=== PATIENT | female | born 1950 | race Caucasian/White ===

== ENCOUNTER 2016-12-04 17:26 | Inpatient (IN) | payer BC, MEDICARE, OTHER ==
[~2016-12-04] VITALS: Ht 160 cm; Wt 50.0 kg
[2016-12-04 17:28] VITALS: BP 148/81; PULSE 57; RESP 15; TEMP 98.2; O2SAT 98
--- NOTE | 2016-12-04 18:32 | PD ---
HPI Chief Complaint: Psychiatric Symptoms Time Seen by Provider: 18:24 Travel History International Travel<30 days: No Contact w/Intl Traveler<30days: No Traveled to known affect area: No History of Present Illness HPI 66 year old female presents to the emergency department with her niece for psychiatric evaluation. According to the niece, the patient was Hope Acted yesterday and was taken to [facility]. She was later released back home. According to the niece, the patient threatens her and threatens suicide. She states she moved down in July of 2016 to take care of the patient and her with dementia. She states the patient was off her meds and she is now back on them. The niece states that she saw her PCP and was placed on Buspar for "manic bipolar disorder" on Monday. She has not yet been to a psychiatrist. The patient denies any suicidal or homicidal ideation. She states she has been "angry" since her niece moved down. She states that her niece controls her too much and has sold some of her belongings. The niece states she did this with permission. She denies any alcohol use, tobacco use, drug use. She denies any medical complaints today. She has a PMH of HTN, DM, CVA. PFSH Social History Alcohol Use: No Tobacco Use: No Substance Use: No Allergies-Medications (Allergen,Severity, Reaction): Coded Allergies: Sulfa (Verified Allergy, Unknown, ITCHY , 12/04/16) Reported Meds & Prescriptions Reported Meds & Active Scripts Active Reported Buspirone (Buspirone HCl) 5 Mg Tab 5 Mg PO BID Novolog Flexpen Inj (Insulin Aspart) 300 Unit/3 Ml Pen 1 Units SQ QID PRN Amlodipine (Amlodipine Besylate) 5 Mg Tab 5 Mg PO DAILY Aspirin 81 Mg Chew 81 Mg CHEW DAILY Atorvastatin (Atorvastatin Calcium) 40 Mg Tab 40 Mg PO HS Lantus Inj (Insulin Glargine) 1,000 Unit/10 Ml Vial 5 Units SQ HS Hydralazine (Hydralazine HCl) 25 Mg Tab 25 Mg PO TID Take with a meal Ramipril 5 Mg Cap 5 Mg PO DAILY Clonidine (Clonidine HCl) 0.1 Mg Tab 0.1 Mg PO DAILY Review of Systems Except as stated in HPI: all other systems reviewed are Neg Physical Exam Narrative GENERAL: Well-nourished, well-developed female patient, ambulatory and in no acute distress. Afebrile. SKIN: Focused skin assessment warm/dry. HEAD: Normocephalic. Atraumatic. EYES: No scleral icterus. No injection or drainage. NECK: Supple, trachea midline. No JVD or lymphadenopathy. CARDIOVASCULAR: Regular rate and rhythm without murmurs, gallops, or rubs. RESPIRATORY: Breath sounds equal bilaterally. No accessory muscle use. Lung sounds are clear to auscultation. GASTROINTESTINAL: Abdomen soft, non-tender, nondistended. MUSCULOSKELETAL: No cyanosis, or edema. PSYCHIATRIC: No delusional thought processes. No hallucinations. Data Data Last Documented VS Vital Signs Date Time Temp Pulse Resp B/P Pulse Ox O2 Delivery O2 Flow Rate FiO2 12/04/16 19:30 62 14 140/76 99 12/04/16 17:28 98.2 Orders Complete Blood Count With Diff (12/04/16 18:23) Comprehensive Metabolic Panel (12/04/16 18:23) Urinalysis - C+S If Indicated (12/04/16 18:23) Psych Screen (12/04/16 18:23) Drug Screen, Random Urine (12/04/16 18:23) Alcohol (Ethanol) (12/04/16 18:23) Labs Laboratory Tests Test 12/04/16 12/04/16 18:45 18:50 White Blood Count 9.6 TH/MM3 Red Blood Count 3.87 MIL/MM3 Hemoglobin 11.4 GM/DL Hematocrit 34.2 % Mean Corpuscular Volume 88.2 FL Mean Corpuscular Hemoglobin 29.5 PG Mean Corpuscular Hemoglobin 33.4 % Concent Red Cell Distribution Width 14.1 % Platelet Count 206 TH/MM3 Mean Platelet Volume 9.5 FL Neutrophils (%) (Auto) 74.8 % Lymphocytes (%) (Auto) 14.0 % Monocytes (%) (Auto) 6.9 % Eosinophils (%) (Auto) 3.6 % Basophils (%) (Auto) 0.7 % Neutrophils # (Auto) 7.2 TH/MM3 Lymphocytes # (Auto) 1.4 TH/MM3 Monocytes # (Auto) 0.7 TH/MM3 Eosinophils # (Auto) 0.3 TH/MM3 Basophils # (Auto) 0.1 TH/MM3 CBC Comment DIFF FINAL Differential Comment Sodium Level 140 MEQ/L Potassium Level 4.0 MEQ/L Chloride Level 105 MEQ/L Carbon Dioxide Level 28.8 MEQ/L Anion Gap 6 MEQ/L Blood Urea Nitrogen 21 MG/DL Creatinine 1.25 MG/DL Estimat Glomerular Filtration 43 ML/MIN Rate Random Glucose 142 MG/DL Calcium Level 9.2 MG/DL Total Bilirubin 0.5 MG/DL Aspartate Amino Transf 23 U/L (AST/SGOT) Alanine Aminotransferase 41 U/L (ALT/SGPT) Alkaline Phosphatase 67 U/L Total Protein 7.7 GM/DL Albumin 3.8 GM/DL Ethyl Alcohol Level 5 MG/DL Urine Color YELLOW Urine Turbidity CLEAR Urine pH 5.5 Urine Specific [place] 1.017 Urine Protein 30 mg/dL Urine Glucose (UA) NEG mg/dL Urine Ketones NEG mg/dL Urine Occult Blood NEG Urine Nitrite NEG Urine Bilirubin NEG Urine Urobilinogen LESS THAN 2.0 MG/DL Urine Leukocyte Esterase NEG Urine RBC LESS THAN 1 /hpf Urine WBC 4 /hpf Urine Bacteria RARE /hpf Urine Hyaline Casts 4 /lpf Urine Mucus FEW /lpf Microscopic Urinalysis Comment CULT NOT INDICATED Urine Opiates Screen NEG Urine Barbiturates Screen NEG Urine Amphetamines Screen NEG Urine Benzodiazepines Screen NEG Urine Cocaine Screen NEG Urine Cannabinoids Screen NEG MDM Medical Decision Making Medical Screen Exam Complete: Yes Emergency Medical Condition: Yes Medical Record Reviewed: Yes Differential Diagnosis Depression versus anxiety versus bipolar disorder versus electrolyte abnormality versus UTI Narrative Course 66-year-old female presents to the emergency department with her niece for psychiatric evaluation. Patient niece states that the patient her entire and threatened suicide. However, the patient denies this stating that she is just angry and doesn't want her niece living with her anymore. She states that her niece controls her too much. She denies any suicidal or homicidal ideation. CBC, CMP, alcohol level, UA, UDS are ordered and pending. CBC shows no acute abnormality. CMP shows BUN 21, creatinine 1.25. Alcohol level is 5. UDS is negative. UA is negative for acute infection. Patient is medically cleared for psychiatric screening and disposition. Mental health screening discussed with the patient. Psychiatric screen ordered. Diagnosis Primary Impression: Anger Additional Instructions: Patient is medically cleared for psychiatric screening and disposition. Condition: Stable Vincent Islasmj WINTER Dec 04, 2016 18:32
[2016-12-04 19:01] LABS: AUTOMATED NEUTROPHIL # 7.2 TH/MM3 (1.8-7.7); BASOPHIL # 0.1 TH/MM3 (0-0.2); BASOPHIL % 0.7 % (0.0-2.0); EOSINOPHIL # 0.3 TH/MM3 (0-0.4); EOSINOPHIL % 3.6 % (0.0-4.0); HEMATOCRIT 34.2 % (35.0-46.0); HEMO FLAGS DIFF FINAL; LYMPHOCYTE # 1.4 TH/MM3 (1.0-4.8); MEAN CELL VOLUME 88.2 FL (80.0-100.0); MEAN CORPUSCULAR HEMOGLOBIN 29.5 PG (27.0-34.0); MEAN CORPUSCULAR HGB CONC 33.4 % (32.0-36.0); MONO % 6.9 % (0.0-8.0); NEUT % 74.8 % (16.0-70.0); PLATELET COUNT 206 TH/MM3 (150-450); RED BLOOD COUNT 3.87 MIL/MM3 (4.00-5.30); RED CELL DISTRIBUTION WIDTH 14.1 % (11.6-17.2); WHITE BLOOD COUNT 9.6 TH/MM3 (4.0-11.0)
[2016-12-04 19:18] LABS: ANION GAP 6 MEQ/L (5-15)
[2016-12-04] MEDS ORDERED: RAMI5CAP PO (19:18)
[2016-12-04] MEDS ORDERED: CLON0.1T PO (19:18)
[2016-12-04 19:21] LABS: ALKALINE PHOSPHATASE 67 U/L (45-117); ALT (GPT) 41 U/L (10-53); AST (GOT) 23 U/L (15-37); BICARBONATE 28.8 MEQ/L (21.0-32.0); BLOOD UREA NITROGEN 21 MG/DL (7-18); CHLORIDE 105 MEQ/L (98-107); GLOMERULAR FILTRATION RATE 43 ML/MIN (>89); SODIUM (NA) 140 MEQ/L (136-145); TOTAL BILIRUBIN ADULT 0.5 MG/DL (0.2-1.0)
[2016-12-04] MEDS ORDERED: LANTUS2P SQ (19:24)
[2016-12-04] MEDS ORDERED: HYDR25TA35 PO (19:24)
[2016-12-04] MEDS ORDERED: AMLO5TAB2 PO (19:24)
[2016-12-04] MEDS ORDERED: ATOR40TA16 PO (19:24)
[2016-12-04] MEDS ORDERED: NOVOINJ3 SQ (19:24)
[2016-12-04] MEDS ORDERED: ASPI81CH CHEW (19:24)
[2016-12-04] MEDS ORDERED: BUSP5TAB PO (19:28)
[2016-12-04 19:29] LABS: BACTERIA, URINE RARE /hpf; BLOOD, URINE NEG (NEG); COMMENT (UR) CULT NOT INDICATED; CULTURE IF INDICATED CULT NOT INDICATED; GLUCOSE,URINE NEG (NEG); HYALINE CAST, URINE 4 /lpf (RARE); KETONE, URINE NEG (NEG); MUCUS URINE FEW /lpf (OCC); NITRITE,URINE NEG (NEG); PH, URINE 5.5 (5.0-8.5); URINE COLOR YELLOW (YELLW/STRAW)
[2016-12-04 19:30] VITALS: BP 140/76; PULSE 62; RESP 14; O2SAT 99
[2016-12-04 19:39] LABS: AMPHETAMINE, URINE NEG (NEG); BARBITURATES, URINE NEG (NEG); COCAINE, URINE NEG (NEG)
[2016-12-04 22:09] VITALS: BP 136/74; PULSE 66; RESP 14; O2SAT 97
[2016-12-04 22:30] VITALS: BP 162/78; PULSE 70; RESP 16; TEMP 98; O2SAT 98
[2016-12-04] MEDS ORDERED: MAGNESIUM HYDROXIDE SUSP 30 ML CUP PO PRN (23:30)
[2016-12-04] MEDS ORDERED: ACETAMINOPHEN 325 MG TAB PO PRN (23:30)
[2016-12-04] MEDS ORDERED: DEXTROSE 50% IN WATER 50 ML VIAL(D50) IV PUSH PRN (23:30)
[2016-12-04] MEDS ORDERED: LORazepam 0.5 MG TAB age > 65 yrs PO PRN (23:30)
[2016-12-04] MEDS ORDERED: GLUCAGON 1 MG/ML VIAL OTHER PRN (23:30)
[2016-12-04] MEDS ORDERED: ALUMINUM/MAGNESIUM/SIMETH 30 ML CUP PO PRN (23:30)
[2016-12-04] MEDS ORDERED: LORazepam 2 MG/ML VIAL - age > 65 yrs IM PRN (23:30)
[2016-12-04] MEDS ORDERED: QUEtiapine FUMARATE 25 MG TAB PO SCH (23:30)
[2016-12-05 06:46] VITALS: BP 158/77; PULSE 71; RESP 18; TEMP 97.9; O2SAT 97
[2016-12-05] MEDS: LOW DOSE INSULIN NOVOLOG SUPPLEMENTAL SCALE SQ SCH ×4 (07:00→21:00)
[2016-12-05 07:21] LABS: ANION GAP 8 MEQ/L (5-15); BICARBONATE 27.1 MEQ/L (21.0-32.0); BLOOD UREA NITROGEN 19 MG/DL (7-18); CHLORIDE 107 MEQ/L (98-107); POTASSIUM 3.8 MEQ/L (3.5-5.1); SODIUM (NA) 142 MEQ/L (136-145); URIC ACID 4.4 MG/DL (2.6-6.0)
[2016-12-05 07:48] LABS: FREE T4 1.19 NG/DL (0.76-1.46); GLOMERULAR FILTRATION RATE 51 ML/MIN (>89); LDL CHOLESTEROL 20 MG/DL (0-99)
[2016-12-05 07:53] LABS: CREATINE KINASE 78 U/L (26-192)
[2016-12-05] MEDS: RAMIPRIL 5 MG CAP PO SCH (09:00)
[2016-12-05] MEDS: cloNIDine HCL 0.1 MG TAB PO SCH (09:01)
[2016-12-05] MEDS: amLODIPine BESYLATE 5 MG TAB PO SCH (09:01)
[2016-12-05] MEDS: ASPIRIN 81 MG CHEW TAB PO SCH (09:01)
[2016-12-05] MEDS: hydrALAZINE HCL 25 MG TAB PO SCH ×3 (09:01→18:08)
[2016-12-05 13:00] VITALS: BP 123/60; PULSE 64; RESP 17; TEMP 98.1
--- NOTE | 2016-12-05 14:38 | HHI.HP ---
Provisional Diagnosis Admission Date Dec 04, 2016 at 21:37 [place] I. Adjustment disorder with mixed disturbance of emotion and conduct. Certification of Person's Competence To Provide Express and Informed Consent I have personally examined Julee Kaufman , a person being served at [facility] on, Dec 05, 2016 14:32. Express and informed consent means consent voluntarily given in writing, by a competent person, after sufficient explanation and disclosure of the subject matter involved to enable the person to make a knowing and willful decision without any element of force, fraud, deceit, duress, or other form of constraint or coercion. This person is 18 years of age or older, is not now known to be incompetent to consent to treatment with a guardian advocate, and does not have a health care surrogate or proxy currently making medical treatment decisions. I have found this person to be one of the following: [X] Competent to provide express and informed consent, as defined above, for voluntary admission to this facility and is competent to provide express and informed consent for treatment. He/she has the consistent capacity to make well reasoned, willful, and knowing decisions concerning his or her medical or mental health treatment. The person fully and consistently understands the purpose of the admission for examination/placement and is fully capable of personally exercising all rights assured [place] [] Incompetent to provide express and informed consent to voluntary admission, and this is incompetent to provide express and informed consent to treatment. The person must be transferred to involuntary status and a petition for a guardian advocate filed with the Circuit Court. [] Refusing to provide express and informed consent to voluntary admission but is competent to provide express and informed consent for treatment. The person must be discharged or transferred to involuntary status. Form shall be completed within 24 hours of a person's arrival at the receiving facility and filed in the clinical record of each person: 1. Admitted on a voluntary basis 2. Permitted to provide express and informed consent to his/her own treatment 3. Allowed to transfer from involuntary to voluntary status 4. Prior to permitting a person to consent to his or her own treatment after having been previously found incompetent to consent to treatment. History of Present Illness Capacity: Has Capacity HPI This is a 66-year-old female who was reportedly Hope acted by her daughter for suicidal remarks. The patient denies having been suicidal. She does state that she said this threat yesterday, on the day of admission. She reports being bothered by her niece, who has moved down here from [place] with HER-2 children and a male friend, to move in with the patient and her . Patient states that these people are aggravating to her and she wants her needs to leave. She reports that the kids who are 11 and 7 are very stressful for her as well and that the niece's friend has no business living in their home but her allowed it. The patient and her have been on the phone multiple times today and argue about everything. The patient however continues to not be suicidal or homicidal or psychotic. She would like to leave the hospital as soon as possible. She has a home with her in [facility]. Alcohol and drug toxicology screens are normal. Review of Systems ROS Limitations: Clinical Condition Past Psych History Psychological trauma history Denied Violence risk - others (6 mos) Minimal Violence risk - self (6 mos) Minimal Substance Abuse History Drugs/Alcohol past 12 months Denied Past Family Social History Coded Allergies: Sulfa (Verified Allergy, Unknown, ITCHY , 12/04/16) Reported Medications Buspirone 5 Mg Tab5 Mg PO BID Ref 0 12/04/16 Insulin Aspart Inj (Novolog Flexpen Inj)300 Unit/3 Ml Pen1 Units SQ QID PRN ( SLIDING SCALE ) #1 PEN Ref 0 12/04/16 Amlodipine 5 Mg Tab5 Mg PO DAILY #30 TAB Ref 0 12/04/16 Aspirin 81 Mg Chew81 Mg CHEW DAILY Ref 0 12/04/16 Atorvastatin 40 Mg Tab40 Mg PO HS #30 TAB Ref 0 12/04/16 Insulin Glargine Inj (Lantus Inj)1,000 Unit/10 Ml Vial5 Units SQ HS Ref 0 12/04/16 Hydralazine 25 Mg Tab25 Mg PO TID #90 TAB Ref 0 Take with a meal 12/04/16 Ramipril 5 Mg Cap5 Mg PO DAILY #30 CAP Ref 0 12/04/16 Clonidine 0.1 Mg Tab0.1 Mg PO DAILY #60 TAB Ref 0 12/04/16 Current Medications Medications (Trade) Dose Ordered Sig/Clif Route Start Time Stop Time Status Last Admin (Catapres) 0.1 mg DAILY PO 12/05/16 09:00 12/05/16 09:01 (Altace) 5 mg DAILY PO 12/05/16 09:00 12/05/16 09:00 (Apresoline) 25 mg TID PO 12/05/16 09:00 12/05/16 13:36 (Levemir Inj) 5 units HS SQ 12/05/16 21:00 (Aspirin Chew) 81 mg DAILY PO 12/05/16 09:00 12/05/16 09:01 (Norvasc) 5 mg DAILY PO 12/05/16 09:00 12/05/16 09:01 (Lipitor) 40 mg HS PO 12/05/16 21:00 (SEROquel) 25 mg HS PO 12/05/16 21:00 (D50w (Vial) Inj) 25 ml UNSCH PRN IV PUSH 12/04/16 23:30 (Glucagon Inj) 1 mg UNSCH PRN OTHER 12/04/16 23:30 (Ativan) 0.5 mg Q12H PRN PO 12/04/16 23:30 (Ativan Inj) 0.5 mg Q12H PRN IM 12/04/16 23:30 (Tylenol) 650 mg Q4H PRN PO 12/04/16 23:30 (Milk Of Magnesia Liq) 30 ml DAILY PRN PO 12/04/16 23:30 (Mag-Al Plus Susp Liq) 30 ml Q6H PRN PO 12/04/16 23:30 Family History Positive for mood and anxiety disorders. Social History Patient has been for greater than 25 years. reportedly has some early onset dementia. Patient denies alcohol or drug abuse at this time. However she is not employed. Patient's Strengths (min. 2) Verbal and resilient. Physical Exam GENERAL: SKIN: Warm and dry. HEAD: Normocephalic. EYES: No scleral icterus. No injection or drainage. NECK: Supple, trachea midline. No JVD or lymphadenopathy. CARDIOVASCULAR: Regular rate and rhythm without murmurs, gallops, or rubs. RESPIRATORY: Breath sounds equal bilaterally. No accessory muscle use. GASTROINTESTINAL: Abdomen soft, non-tender, nondistended. MUSCULOSKELETAL: No cyanosis, or edema. BACK: Nontender without obvious deformity. No CVA tenderness. Vital Signs Vital Signs Date Time Temp Pulse Resp B/P Pulse Ox O2 Delivery O2 Flow Rate FiO2 4/17/17 06:46 97.9 71 18 158/77 97 Mental Status Examination Speech: Unremarkable Orientation: x3 Memory: Unremarkable Thought Process: Organized, Goal Directed Thought Content: Unremarkable Hallucination Type: None Attention and Concentration: Good Suicidal Ideation: No Previous Suicide Attempts: No Homicidal Ideation: No Previous Homicide Attempts: No Insight: Fair Judgment: WNL Affect: Good Mood: Appropriate Motor Activity: Normal gait Assessment & Plan Problem List: (1) Adjustment disorder with mixed disturbance of emotions and conduct ICD Code: F43.25 Assessment & Plan Estimated LOS: 1-2 days patient will be evaluated for mood disorder and the possible need for antidepressant therapy. However she would like to leave the hospital and may possibly be discharged tomorrow to her . Jasbir Weathers MD Dec 05, 2016 14:38
[2016-12-05 16:37] LABS: HEMOGLOBIN A1a 0.7 %; HEMOGLOBIN A1b 0.8 %; HEMOGLOBIN Ao 84.7 %; HEMOGLOBIN F 0.7 %; HEMOGLOBIN LA1C 1.9 %
--- NOTE | 2016-12-05 16:51 | PD.CONS ---
[facility] By [facility]ry team Reason for Consult Assessment medical management Primary Care Physician Reta Washington M.D. Diagnoses: History of Present Illness Patient is a 66 year old female with primary medical history of HTN, DM, CVA who came into the hospital under Hope act secondary to threatening her niece and threatening for suicide. As per report, patient has been off of her psych medications but has been placed back by her PCP recently on BuSpar for manic bipolar disorder. She is now admitted to inpatient psychiatry unit for further evaluation. Consulted for assistance in medical management. Patient seen and examined. Reports she is doing well. Confirmed that she has a history of hypertension, DM, had CVA in 2016 without any residual deficits. Denies pain and discomfort. Denies SOB/ dyspnea. Denies chest pain, palpitations, headaches, dizziness. Denies fevers, chills, n/v/d. Review of Systems Except as stated in HPI: all other systems reviewed are Neg Past Family Social History Allergies: Coded Allergies: Sulfa (Verified Allergy, Unknown, ITCHY , 12/04/16) Past Medical History HTN DM 2 CVA in 2016 without any residual weakness Past Surgical History None Reported Medications Buspirone (Buspirone HCl) 5 Mg Tab 5 Mg PO BID Novolog Flexpen Inj (Insulin Aspart) 300 Unit/3 Ml Pen 1 Units SQ QID PRN Amlodipine (Amlodipine Besylate) 5 Mg Tab 5 Mg PO DAILY Aspirin 81 Mg Chew 81 Mg CHEW DAILY Atorvastatin (Atorvastatin Calcium) 40 Mg Tab 40 Mg PO HS Lantus Inj (Insulin Glargine) 1,000 Unit/10 Ml Vial 5 Units SQ HS Hydralazine (Hydralazine HCl) 25 Mg Tab 25 Mg PO TID Take with a meal Ramipril 5 Mg Cap 5 Mg PO DAILY Clonidine (Clonidine HCl) 0.1 Mg Tab 0.1 Mg PO DAILY Active Ordered Medications Current Medications Medications (Trade) Dose Ordered Sig/Clif Route Start Time Stop Time Status Last Admin (Catapres) 0.1 mg DAILY PO 12/05/16 09:00 12/05/16 09:01 (Altace) 5 mg DAILY PO 12/05/16 09:00 12/05/16 09:00 (Apresoline) 25 mg TID PO 12/05/16 09:00 12/05/16 13:36 (Levemir Inj) 5 units HS SQ 12/05/16 21:00 (Aspirin Chew) 81 mg DAILY PO 12/05/16 09:00 12/05/16 09:01 (Norvasc) 5 mg DAILY PO 12/05/16 09:00 12/05/16 09:01 (Lipitor) 40 mg HS PO 12/05/16 21:00 (SEROquel) 25 mg HS PO 12/05/16 21:00 (D50w (Vial) Inj) 25 ml UNSCH PRN IV PUSH 12/04/16 23:30 (Glucagon Inj) 1 mg UNSCH PRN OTHER 12/04/16 23:30 (Ativan) 0.5 mg Q12H PRN PO 12/04/16 23:30 (Ativan Inj) 0.5 mg Q12H PRN IM 12/04/16 23:30 (Tylenol) 650 mg Q4H PRN PO 12/04/16 23:30 (Milk Of Magnesia Liq) 30 ml DAILY PRN PO 12/04/16 23:30 (Mag-Al Plus Susp Liq) 30 ml Q6H PRN PO 12/04/16 23:30 Family History Mother and father had cerebral hemorrhage Social History Denies alcohol use denies tobacco use Denies illicit drug use Physical Exam Vital Signs Vital Signs Date Time Temp Pulse Resp B/P Pulse Ox O2 Delivery O2 Flow Rate FiO2 12/05/16 13:00 98.1 64 17 123/60 12/05/16 06:46 97.9 71 18 158/77 97 12/04/16 22:30 98.0 70 16 162/78 98 12/04/16 22:09 66 14 136/74 97 12/04/16 19:30 62 14 140/76 99 12/04/16 17:41 16 12/04/16 17:28 98.2 57 15 148/81 98 Physical Exam GENERAL: This is a thin-appearing, well-developed patient, in no apparent distress. SKIN: No rashes, ecchymoses or lesions. Cool and dry. HEAD: Atraumatic. Normocephalic. No temporal or scalp tenderness. EYES: Pupils equal round and reactive. Extraocular motions intact. No scleral icterus. No injection or drainage. ENT: Nose without bleeding. Throat without erythema. Uvula midline. Airway patent. NECK: Trachea midline. No JVD or lymphadenopathy. CARDIOVASCULAR: Regular rate and rhythm without murmurs, gallops, or rubs. RESPIRATORY: Clear to auscultation. Breath sounds equal bilaterally. No wheezes , rales, or rhonchi. GASTROINTESTINAL: Abdomen soft, non-tender, nondistended. Bowel sounds active 4 MUSCULOSKELETAL: Extremities without clubbing, cyanosis, or edema. Moves all extremities equally. NEUROLOGICAL: Awake and alert. Oriented to self, place, time. Motor and sensory grossly within normal limits. Normal speech. Laboratory Laboratory Tests Test 12/04/16 12/04/16 12/05/16 18:45 18:50 06:40 White Blood Count 9.6 Red Blood Count 3.87 Hemoglobin 11.4 Hematocrit 34.2 Mean Corpuscular Volume 88.2 Mean Corpuscular Hemoglobin 29.5 Mean Corpuscular Hemoglobin 33.4 Concent Red Cell Distribution Width 14.1 Platelet Count 206 Mean Platelet Volume 9.5 Neutrophils (%) (Auto) 74.8 Lymphocytes (%) (Auto) 14.0 Monocytes (%) (Auto) 6.9 Eosinophils (%) (Auto) 3.6 Basophils (%) (Auto) 0.7 Neutrophils # (Auto) 7.2 Lymphocytes # (Auto) 1.4 Monocytes # (Auto) 0.7 Eosinophils # (Auto) 0.3 Basophils # (Auto) 0.1 CBC Comment DIFF FINAL Differential Comment Sodium Level 140 142 Potassium Level 4.0 3.8 Chloride Level 105 107 Carbon Dioxide Level 28.8 27.1 Anion Gap 6 8 Blood Urea Nitrogen 21 19 Creatinine 1.25 1.08 Estimat Glomerular Filtration 43 51 Rate Random Glucose 142 100 Calcium Level 9.2 8.7 Total Bilirubin 0.5 Aspartate Amino Transf 23 (AST/SGOT) Alanine Aminotransferase 41 (ALT/SGPT) Alkaline Phosphatase 67 Total Protein 7.7 Albumin 3.8 Ethyl Alcohol Level 5 Urine Color YELLOW Urine Turbidity CLEAR Urine pH 5.5 Urine Specific [place] 1.017 Urine Protein 30 Urine Glucose (UA) NEG Urine Ketones NEG Urine Occult Blood NEG Urine Nitrite NEG Urine Bilirubin NEG Urine Urobilinogen LESS THAN 2.0 Urine Leukocyte Esterase NEG Urine RBC LESS THAN 1 Urine WBC 4 Urine Bacteria RARE Urine Hyaline Casts 4 Urine Mucus FEW Microscopic Urinalysis Comment CULT NOT INDICATED Urine Opiates Screen NEG Urine Barbiturates Screen NEG Urine Amphetamines Screen NEG Urine Benzodiazepines Screen NEG Urine Cocaine Screen NEG Urine Cannabinoids Screen NEG Uric Acid 4.4 Phosphorus Level 3.2 Magnesium Level 2.0 Total Creatine Kinase 78 Triglycerides Level 87 Cholesterol Level 76 LDL Cholesterol 20 HDL Cholesterol 39.0 Cholesterol/HDL Ratio 1.94 Vitamin B12 Level 588 25-Hydroxy Vitamin D Total 31.5 Free Thyroxine 1.19 Thyroid Stimulating Hormone 1.090 3rd Gen Rapid Plasma Reagin NON-REACTIVE Result Diagram: 12/04/16 1845 12/05/16 0640 Assessment and Plan Problem List: (1) Adjustment disorder with mixed disturbance of emotions and conduct ICD Code: F43.25 Status: Acute (2) HTN (hypertension) ICD Code: I10 Status: Chronic (3) DM type 2 (diabetes mellitus, type 2) ICD Code: E11.9 Status: Chronic Assessment and Plan Patient is a 66 year old female with primary medical history of HTN, DM, CVA who came into the hospital under Hope act secondary to threatening her niece and threatening for suicide. As per report, patient has been off of her psych medications but has been placed back by her PCP recently on BuSpar for manic bipolar disorder. She is now admitted to inpatient psychiatry unit for further evaluation. Consulted for assistance in medical management. Suicidal ideation, depression, bipolar disorder? - Managed by psychiatry team HTN - Restart home meds amlodipine 5 mg daily, ramipril 5 mg daily, hydralazine 25 mg 3 times a day - Adjust medication as needed - Monitor BP DM 2 - Check hemoglobin A1c - Restart home medication 5 units Levemir daily at bedtime, insulin sliding scale - Monitor Accu-Cheks History of CVA - Continue ASA daily - Continue atorvastatin 40 mg daily DVT prop low-risk patient ambulatory Thank you for this consultation. Written by Dylon Miranda, acting as scribe for Dr. Matos on 12/05/16 at 16: 50. This note was transcribed by scribe Dylon Miranda. I, Dr. Rodolfo Matos personally performed the history, physical exam, and medical decision making; and confirmed the accuracy of the information in the transcribed note. Authenticated by Dr. Rodolfo Matos on 12/05/16 at 16:50. Code Status Full code Discussed Condition With Patient, nursing Dylon Ospina Dec 05, 2016 16:51 Rodolfo Matos MD Dec 06, 2016 17:15
[2016-12-05 20:08] VITALS: BP 109/54; PULSE 67; RESP 18; TEMP 98.5; O2SAT 98
[2016-12-05] MEDS ORDERED: QUEtiapine FUMARATE 25 MG TAB PO SCH (21:00)
[2016-12-05] MEDS ORDERED: ATORVASTATIN 40 MG TAB PO SCH (21:00)
[2016-12-05] MEDS ORDERED: INSULIN DETEMIR 100 UNITS/ML VIAL SQ SCH (21:00)
[2016-12-06 06:33] VITALS: BP 108/67; PULSE 69; RESP 18; TEMP 97.9; O2SAT 97
[2016-12-06] MEDS: LOW DOSE INSULIN NOVOLOG SUPPLEMENTAL SCALE SQ SCH ×2 (06:35→11:00)
[2016-12-06] MEDS: RAMIPRIL 5 MG CAP PO SCH (08:27)
[2016-12-06] MEDS: amLODIPine BESYLATE 5 MG TAB PO SCH (08:28)
[2016-12-06] MEDS: cloNIDine HCL 0.1 MG TAB PO SCH (08:28)
[2016-12-06] MEDS: hydrALAZINE HCL 25 MG TAB PO SCH ×2 (08:28→13:40)
[2016-12-06] MEDS: ASPIRIN 81 MG CHEW TAB PO SCH (08:28)
--- NOTE | 2016-12-06 10:46 | HHI.DS ---
Psychiatry Discharge Summary Inpatient Psychiatric care?: Yes Advance Directive: Yes Mental Health AdvanceDirective: No Health Care Proxy: No Admission Admission Date Dec 04, 2016 at 21:37 Admission Diagnosis: (1) Adjustment disorder with mixed disturbance of emotions and conduct ICD Code: F43.25 Brief History This is a 66-year-old female who was reportedly Hope acted by her daughter for suicidal remarks. The patient denies having been suicidal. She does state that she said this threat yesterday, on the day of admission. She reports being bothered by her niece, who has moved down here from [place] with HER-2 children and a male friend, to move in with the patient and her . Patient states that these people are aggravating to her and she wants her needs to leave. She reports that the kids who are 11 and 7 are very stressful for her as well and that the niece's friend has no business living in their home but her allowed it. The patient and her have been on the phone multiple times today and argue about everything. The patient however continues to not be suicidal or homicidal or psychotic. She would like to leave the hospital as soon as possible. She has a home with her in [facility]. Alcohol and drug toxicology screens are normal. Tobacco Use In Past 30 Days: No Tobacco Past 30 Days Alcohol Use: Never Hospital Course Patient participated in individual and group therapy sessions. She was offered antidepressant medication as well. Her problems appear to be more situational because of her knees. However she states that her niece has left her home and the niece and the niece's friend and the niece's children are no longer there. No procedures were performed. The patient wants to go home to her . Results Blood Pressure 108 / 67 Vital Signs Date Time Temp Pulse Resp B/P Pulse Ox O2 Delivery O2 Flow Rate FiO2 12/06/16 06:33 97.9 69 18 108/67 97 Laboratory Tests Test 12/04/16 12/04/16 12/05/16 18:45 18:50 06:40 Red Blood Count 3.87 MIL/MM3 (4.00-5.30) Hemoglobin 11.4 GM/DL (11.6-15.3) Hematocrit 34.2 % (35.0-46.0) Neutrophils (%) (Auto) 74.8 % (16.0-70.0) Blood Urea Nitrogen 21 MG/DL (7-18) 19 MG/DL (7-18) Creatinine 1.25 MG/DL 1.08 MG/DL (0.50-1.00) (0.50-1.00) Estimat Glomerular Filtration 43 ML/MIN (>89) 51 ML/MIN (>89) Rate Random Glucose 142 MG/DL (74-106) Urine Protein 30 mg/dL (NEG-TRACE) Urine Bacteria RARE /hpf (NONE) Urine Mucus FEW /lpf (OCC) Hemoglobin A1c 6.2 % (4.3-6.0) Cholesterol Level 76 MG/DL (120-200) HDL Cholesterol 39.0 MG/DL (40.0-60.0) Laboratory Results Test 12/05/16 06:40 Hemoglobin A1c 6.2 % (4.3-6.0) Triglycerides Level 87 MG/DL (42-150) Cholesterol Level 76 MG/DL (120-200) LDL Cholesterol 20 MG/DL (0-99) HDL Cholesterol 39.0 MG/DL (40.0-60.0) Summary of Procedures None Pending results at discharge: No Medications # of Antipsychotic meds at D/C: 0 Approp Antipsych med options 1 - Minimum of three failed multiple trials of monotherapy. 2 - Documented plan to taper to monotherapy due to previous use of multiple meds OR cross-taper in progress at D/C. 3 - Documentation of augmentation of Clozapine. 4 - Justification other than those listed in allowable values 1-3, document here : Discharge Discharge Date: Dec 06, 2016 Discharge Diagnosis: (1) Adjustment disorder with mixed disturbance of emotions and conduct Diagnosis: Principal ICD Code: F43.25 Mental Status Exam at Disch At the time of discharge the patient was pleasant and cooperative. No suicidal or homicidal ideation, plan or intention was seen. No psychotic thinking. Patient verbally contracted for safety. Cognition completely intact. Pt Condition on Discharge: Stable Discharge Disposition: Discharge Home Discharge Instructions Diet Instructions: As Tolerated, No Restrictions Activities you can perform: Regular-No Restrictions Discharge Time <= 30 minutes Discharge/Advance Care Plan Health Problems: (1) Adjustment disorder with mixed disturbance of emotions and conduct Goals to promote your health * To prevent worsening of your condition and complications * To maintain your health at the optimal level Directions to meet your goals Take your medications as prescribed Follow your dietary instruction Follow activity as directed Keep your appointments as scheduled Take your immunizations and boosters as scheduled If your symptoms worsen call your PCP, if no PCP go to Urgent Care Center or Emergency Room For 13/03 questions related to your inpatient stay or results of tests pending at discharge, please contact Dr. Jasbir Weathers at Smoking is Dangerous to Your Health. Avoid second hand smoking Jasbir Weathers MD Dec 06, 2016 10:46
[2016-12-06] MEDS ORDERED: RAMI5CAP PO (10:49)
[2016-12-06] MEDS ORDERED: QUET1TAB7 PO (10:49)
[2016-12-06] MEDS ORDERED: AMLO5 PO (10:49)
[2016-12-06] MEDS ORDERED: HYDR25TA35 PO (10:49)
[2016-12-06] MEDS ORDERED: CLON.1 PO (10:49)
[2016-12-06] MEDS ORDERED: ATOR40TA16 PO (10:49)
== END 2016-12-06 15:30 | disposition home or self-care (01) | DRG 882 ==
LOC: NEPC 17:26 → NEDA 21:37 → H260 22:29
PROVIDERS: ADMIT Psychiatry & Neurology Psychiatry; ATTEND Psychiatry & Neurology Psychiatry
DX: F43.25 Adjustment disorder with mixed disturbance of emotions and conduct (principal); I10 Essential (primary) hypertension; F31.9 Bipolar disorder, unspecified; E11.9 Type 2 diabetes mellitus without complications; Z79.899 Other long term (current) drug therapy; Y90.0 Blood alcohol level of less than 20 mg/100 ml; Z86.73 Personal history of transient ischemic attack (TIA), and cerebral infarction without residual deficits
CPT/HCPCS: 80048; 80053; 80061; 80307; 81001; 82306; 82550; 82607; 82948; 83036; 83735; 84100; 84439; 84443; 84550; 85025; 86592; 99284; J1815

== ENCOUNTER 2017-10-02 20:35 | Inpatient (IN) | payer MEDICARE ==
[~2017-10-02] VITALS: Ht 160 cm; Wt 60.0 kg
[~2017-10-02 20:35] MED LIST: AMLO5 PO; AMLO5TAB2 PO; ASPI-516 CHEW; ATOR40TA16 PO; BUSP5TAB PO; CLON.1 PO; CLON0.1T PO; HYDR25TA35 PO; LANTUS2P SQ; NOVOINJ3 SQ; QUET1TAB7 PO; RAMI5CAP PO
[2017-10-02 20:50] VITALS: BP 173/92; PULSE 101; RESP 16; O2SAT 95
[2017-10-02] MEDS ORDERED: HYDR-3801 PO (21:04)
[2017-10-02] MEDS ORDERED: LORA-474 PO (21:04)
[2017-10-02] MEDS ORDERED: CLON0.1T PO (21:04)
--- NOTE | 2017-10-02 21:24 | PD ---
HPI Chief Complaint: Hip Injury Time Seen by Provider: 21:13 Travel History International Travel<30 days: No Contact w/Intl Traveler<30days: No Traveled to known affect area: No History of Present Illness HPI 67-year-old female presents emergency department complaining of left hip pain after a trip and fall that occurred at her assisted living facility today. Patient states that she had her foot wrapped in the cord actually fell landing on her left hip. Patient denies numbness or tingling or weakness of the left lower extremity. Patient denies pain currently. Patient denies head trauma, loss of consciousness. Denies neck or back pain. Denies blurred vision or weakness. Says that she was placed in the assisted living facility because she "made the mistake of giving her niece power of transactional attorney". She has a history of diabetes but denies any other medical problems. Denies history of anxiety or depression. PFSH Past Medical History Bipolar Disorder: Yes Anxiety: Yes Depression: Yes (MANIC ) Cerebrovascular Accident: Yes Diabetes: Yes Patient Takes Glucophage: No Diminished Hearing: No Hypertension: Yes Psychiatric: Yes Schizophrenia: Yes Menopausal: Yes Social History Alcohol Use: No Tobacco Use: No Substance Use: No Allergies-Medications (Allergen,Severity, Reaction): Coded Allergies: Sulfa (Sulfonamide Antibiotics) (Verified Allergy, Unknown, ITCHY , ) Reported Meds & Prescriptions Reported Meds & Active Scripts Active Ramipril 5 Mg Cap 5 Mg PO DAILY Reported Ativan (Lorazepam) 1 Mg Tab 1 Mg PO Q4H PRN Hydralazine (Hydralazine HCl) 100 Mg Tab 25 Mg PO DAILY Take with meals Clonidine (Clonidine HCl) 0.1 Mg Tab 0.1 Mg PO BID Novolog Flexpen Inj (Insulin Aspart) 300 Unit/3 Ml Pen 1 Units SQ QID PRN Amlodipine (Amlodipine Besylate) 5 Mg Tab 5 Mg PO DAILY Aspirin 81 Mg Chew 81 Mg CHEW DAILY Atorvastatin (Atorvastatin Calcium) 40 Mg Tab 40 Mg PO HS Lantus Inj (Insulin Glargine) 1,000 Unit/10 Ml Vial 5 Units SQ HS Review of Systems Except as stated in HPI: all other systems reviewed are Neg Physical Exam Narrative GENERAL: Well-nourished in no apparent distress, resting comfortably in bed SKIN: Focused skin assessment warm/dry. HEAD: Atraumatic. Normocephalic. EYES: Pupils equal and round. No scleral icterus. No injection or drainage. ENT: No nasal bleeding or discharge. Mucous membranes pink and moist. NECK: Trachea midline. No JVD. No midline tenderness CARDIOVASCULAR: Regular rate and rhythm. No murmur appreciated. RESPIRATORY: No accessory muscle use. Clear to auscultation. Breath sounds equal bilaterally. GASTROINTESTINAL: Abdomen soft, non-tender, nondistended. Hepatic and splenic margins not palpable. MUSCULOSKELETAL: No obvious deformities. No clubbing. No cyanosis. No edema. Left leg externally rotated and slightly shortened, pulse motor sensory present BACK: No CVA tenderness. No rash. No point tenderness on palpation of the spine. NEUROLOGICAL: Awake and alert. No obvious cranial nerve deficits. Motor grossly within normal limits. Normal speech. PSYCHIATRIC: Appropriate mood and affect; insight and judgment normal. Data Data Last Documented VS Vital Signs Date Time Temp Pulse Resp B/P (MAP) Pulse Ox O2 Delivery O2 Flow Rate FiO2 10/02/17 21:04 Nasal Cannula 10/02/17 20:50 101 16 173/92 (119) 95 Orders Orders Electrocardiogram (10/02/17 21:20) Complete Blood Count With Diff (10/02/17 21:20) Comprehensive Metabolic Panel (10/02/17 21:20) Prothrombin Time / Inr (Pt) (10/02/17 21:20) Act Partial Throm Time (Ptt) (10/02/17 21:20) Urinalysis - C+S If Indicated (10/02/17 21:20) Chest, Single Ap (10/02/17 21:20) Hip, Uni(Ap&Lat) W Ap Pelvis (10/02/17 21:20) Ondansetron Inj (Zofran Inj) (10/02/17 21:30) Femur (Ap & Lat/2vws) (10/02/17 ) Splint Or Brace Apply/Monitor (10/02/17 22:35) Urine Culture (10/02/17 22:00) Admit To Inpatient (10/02/17 ) Vital Signs (Adult) Q4H (10/02/17 23:22) Activity Bed Rest (10/02/17 23:22) Clinical Biochemical Geneticist / Telemetry .CONTINUOUS (10/02/17 23:22) Sodium Chloride 0.9% Flush (Ns Flush) (10/02/17 23:30) Sodium Chloride 0.9% Flush (Ns Flush) (10/03/17 09:00) Basic Metabolic Panel (Bmp) (10/03/17 06:00) Complete Blood Count With Diff (10/03/17 06:00) Pt Request For Service (10/02/17 23:22) Case Management Consult (10/02/17 23:22) Naloxone Inj (Narcan Inj) (10/02/17 23:30) Inpatient Certification (10/02/17 ) Bedside Glucose LIOR.CSUGAR (10/02/17 23:22) Blood Glucose Goal (Criteria) (10/02/17 23:22) Hypoglycemia 70 Mg/Dl Or < (10/02/17 23:22) Notify Dr: Other (10/02/17 23:22) Dextrose 50% In Livan (Vial) Inj (D50w (Vi (10/02/17 23:30) Glucagon Inj (Glucagon Inj) (10/02/17 23:30) Admit Order (Ed Use Only) (10/02/17 23:23) Consult Orthopedic (10/02/17 ) Dext 5%-Nacl 0.45% 1000 Ml Inj (D5w-1/2 (10/03/17 00:00) Labs Laboratory Tests Test 10/02/17 22:00 White Blood Count 21.4 TH/MM3 Red Blood Count 3.96 MIL/MM3 Hemoglobin 11.8 GM/DL Hematocrit 35.3 % Mean Corpuscular Volume 89.1 FL Mean Corpuscular Hemoglobin 29.7 PG Mean Corpuscular Hemoglobin Concent 33.4 % Red Cell Distribution Width 13.4 % Platelet Count 213 TH/MM3 Mean Platelet Volume 9.5 FL Neutrophils (%) (Auto) 92.0 % Lymphocytes (%) (Auto) 4.0 % Monocytes (%) (Auto) 3.9 % Eosinophils (%) (Auto) 0.0 % Basophils (%) (Auto) 0.1 % Neutrophils # (Auto) 19.7 TH/MM3 Lymphocytes # (Auto) 0.8 TH/MM3 Monocytes # (Auto) 0.8 TH/MM3 Eosinophils # (Auto) 0.0 TH/MM3 Basophils # (Auto) 0.0 TH/MM3 CBC Comment DIFF FINAL Differential Comment Prothrombin Time 10.8 SEC Prothromb Time International Ratio 1.1 RATIO Activated Partial Thromboplast Time 24.4 SEC Urine Color YELLOW Urine Turbidity CLEAR Urine pH 5.5 Urine Specific [place] 1.017 Urine Protein 100 mg/dL Urine Glucose (UA) TRACE mg/dL Urine Ketones 10 mg/dL Urine Occult Blood SMALL Urine Nitrite NEG Urine Bilirubin NEG Urine Urobilinogen LESS THAN 2.0 MG/DL Urine Leukocyte Esterase NEG Urine RBC 1 /hpf Urine WBC 2 /hpf Urine Amorphous Sediment MOD Urine Bacteria OCC /hpf Urine Mucus FEW /lpf Microscopic Urinalysis Comment CATH-CULTURE IND Blood Urea Nitrogen 42 MG/DL Creatinine 1.26 MG/DL Random Glucose 163 MG/DL Total Protein 7.8 GM/DL Albumin 3.7 GM/DL Calcium Level 8.8 MG/DL Alkaline Phosphatase 78 U/L Aspartate Amino Transf (AST/SGOT) 36 U/L Alanine Aminotransferase (ALT/SGPT) 32 U/L Total Bilirubin 1.4 MG/DL Sodium Level 141 MEQ/L Potassium Level 3.9 MEQ/L Chloride Level 104 MEQ/L Carbon Dioxide Level 27.3 MEQ/L Anion Gap 10 MEQ/L Estimat Glomerular Filtration Rate 42 ML/MIN MDM Medical Decision Making Medical Screen Exam Complete: Yes Emergency Medical Condition: Yes Differential Diagnosis Left hip fracture, left femur fracture, left hip strain, displacement Narrative Course 67-year-old female presents emergency department complaining of left hip pain after a trip and fall that occurred at her assisted living facility today. Patient states that she had her foot wrapped in the cord actually fell landing on her left hip. Patient denies head trauma, loss of consciousness. Denies neck or back pain. Denies blurred vision or weakness. Says that she was placed in the assisted living facility because she "made the mistake of giving her niece power of transactional attorney". She has a history of diabetes but denies any other medical problems. Denies history of anxiety or depression. Patient denies numbness or tingling or weakness of the left lower extremity. Patient denies pain currently. Patient does not take a blood thinner. Vital signs stable. I offered the patient pain medications however, patient declined. EKG sinus tachycardia with RBBB, without STEMI pattern Last Impressions Hip and Pelvis X-Ray 10/02/172119 Signed Impressions: Service Date/Time: Monday, October 02, 2017 21:46 - CONCLUSION: 1. Intertrochanteric fracture proximal left femur with varus angulation. Per Rollins MD Chest X-Ray 10/02/170 Signed Impressions: Service Date/Time: Monday, October 02, 2017 21:39 - CONCLUSION: 1. No active disease. Mildly tortuous aorta. Per Rollins MD Femur X-Ray 10/02/17 0000 Signed Impressions: Service Date/Time: Monday, October 02, 2017 21:46 - CONCLUSION: 1. Left femoral neck fracture with varus angulation. Per Rollins MD Patient describes a mechanical fall resulting in a left femur. I spoke to LAVERNE Palafox who suggested 5# traction and NPO after midnight. Upon review of the EMR, it appears that patient has a history of depression, anxiety, anger, and adjustment disorder. She also has been evaluated for dementia which may be a cause of her stay in an [facility]. I have limited information regarding this patient's stay in the [facility]. Pt will be admitted to Dr Paiz. Ortho consult. Physician Communication Physician Communication I spoke with LAVERNE Palafox who recommends 5# of traction and NPO after midnight. Surgery in the AM. Diagnosis Primary Impression: Intertrochanteric fracture of left femur Qualified Codes: S72.142A - Displaced intertrochanteric fracture of left femur , initial encounter for closed fracture Admitting Information Admitting Physician Requests: Admit Scripts Calcium Carbonate-Vitamin D (Calcium 600+D 200) 600-200 Mg-Unit Tab 1 TAB PO BID for Nutritional Supplement, #90 TAB 0 Refills Prov: Mikhail Armstrong Jr. 10/03/17 Ergocalciferol (Ergocalciferol) 50,000 Unit Cap 38210 UNITS PO Q7D for Nutritional Supplement, #8 CAP Prov: Mikhail Armstrong Jr. 10/03/17 Rivaroxaban (Xarelto) 10 Mg Tab 10 MG PO DAILY for Blood Clot Prevention, #14 TAB 0 Refills Prov: Mikhail Armstrong Jr. 10/03/17 Hydrocodone-Acetaminophen (Chauvin) 5 Mg-325 Mg Tab 1 TAB PO Q4H Y for PAIN, #40 TAB 0 Refills Prov: Mikhail Armstrong Jr. 10/03/17 Condition: Stable Katerina Smith Oct 02, 2017 21:24
[2017-10-02] MEDS ORDERED: ONDANSETRON HCL 4 MG/2 ML VIAL IM ONE (21:30)
--- NOTE | 2017-10-02 22:22 | PD ---
Physical Exam Narrative General: The patient is a well-developed well-nourished female in no acute distress. Head and Neck exam: Head is normocephalic atraumatic. Eyes: EOMI, pupils are equal round and reactive to light. Nose: Midline septum with pink mucous membranes Mouth: Dentition unremarkable. Moist mucus membranes. Posterior oropharynx is not erythematous. No tonsillar hypertrophy. Uvula midline. Airway patent. Neck: No palpable lymphadenopathy. No nuchal rigidity. No thyromegaly. Cardiovascular: Regular rate and rhythm without murmurs, gallops, or rubs. Lungs: Clear to auscultation bilaterally. No wheezes, rhonchi, or rales. Abdomen: Soft, without tenderness to palpation in all 4 quadrants of the abdomen. No guarding, rebound, or rigidity. Normal bowel sounds are audible. No tenderness on palpation of McBurney's point. The patient's bladder palpates to be slightly enlarged. The patient reports that she does need to urinate. A Nicolas catheter was replaced to gravity. Extremities: No clubbing, cyanosis, or edema. 2+ pulses in all 4 extremities. The area of interest is the left hip. This is the location of the patient's reported pain. The patient has slight shortening and external rotation noted. Patient has intact sensation over all digits. Less than 3 second capillary refill of her digits. No knee or ankle pain. No tib-fib pain or distal femur pain. Back: No spinous process tenderness to palpation. No costovertebral angle tenderness to palpation. Neurologic Exam: Grossly nonfocal. Skin Exam: No rash noted. Intact skin that is warm and dry. Data Data Last Documented VS Vital Signs Date Time Temp Pulse Resp B/P (MAP) Pulse Ox O2 Delivery O2 Flow Rate FiO2 10/02/17 21:04 Nasal Cannula 10/02/17 20:50 101 16 173/92 (119) 95 Orders Orders Electrocardiogram (10/02/17 21:20) Complete Blood Count With Diff (10/02/17 21:20) Comprehensive Metabolic Panel (10/02/17 21:20) Prothrombin Time / Inr (Pt) (10/02/17 21:20) Act Partial Throm Time (Ptt) (10/02/17 21:20) Urinalysis - C+S If Indicated (10/02/17 21:20) Chest, Single Ap (10/02/17 21:20) Hip, Uni(Ap&Lat) W Ap Pelvis (10/02/17 21:20) Ondansetron Inj (Zofran Inj) (10/02/17 21:30) Femur (Ap & Lat/2vws) (10/02/17 ) Splint Or Brace Apply/Monitor (10/02/17 22:35) Urine Culture (10/02/17 22:00) Admit To Inpatient (10/02/17 ) Vital Signs (Adult) Q4H (10/02/17 23:22) Activity Bed Rest (10/02/17 23:22) Hose Mender / Telemetry .CONTINUOUS (10/02/17 23:22) Diet Npo (10/03/17 Breakfast) Sodium Chloride 0.9% Flush (Ns Flush) (10/02/17 23:30) Sodium Chloride 0.9% Flush (Ns Flush) (10/03/17 09:00) Basic Metabolic Panel (Bmp) (10/03/17 06:00) Complete Blood Count With Diff (10/03/17 06:00) Pt Request For Service (10/02/17 23:22) Case Management Consult (10/02/17 23:22) Naloxone Inj (Narcan Inj) (10/02/17 23:30) Inpatient Certification (10/02/17 ) Bedside Glucose LIOR.CSUGAR (10/02/17 23:22) Blood Glucose Goal (Criteria) (10/02/17 23:22) Hypoglycemia 70 Mg/Dl Or < (10/02/17 23:22) Notify Dr: Other (10/02/17 23:22) Dextrose 50% In Livan (Vial) Inj (D50w (Vi (10/02/17 23:30) Glucagon Inj (Glucagon Inj) (10/02/17 23:30) Admit Order (Ed Use Only) (10/02/17 23:23) Consult Orthopedic (10/02/17 ) Dext 5%-Nacl 0.45% 1000 Ml Inj (D5w-/2 (10/03/17 00:00) Labs Laboratory Tests Test 10/02/17 22:00 White Blood Count 21.4 TH/MM3 Red Blood Count 3.96 MIL/MM3 Hemoglobin 11.8 GM/DL Hematocrit 35.3 % Mean Corpuscular Volume 89.1 FL Mean Corpuscular Hemoglobin 29.7 PG Mean Corpuscular Hemoglobin Concent 33.4 % Red Cell Distribution Width 13.4 % Platelet Count 213 TH/MM3 Mean Platelet Volume 9.5 FL Neutrophils (%) (Auto) 92.0 % Lymphocytes (%) (Auto) 4.0 % Monocytes (%) (Auto) 3.9 % Eosinophils (%) (Auto) 0.0 % Basophils (%) (Auto) 0.1 % Neutrophils # (Auto) 19.7 TH/MM3 Lymphocytes # (Auto) 0.8 TH/MM3 Monocytes # (Auto) 0.8 TH/MM3 Eosinophils # (Auto) 0.0 TH/MM3 Basophils # (Auto) 0.0 TH/MM3 CBC Comment DIFF FINAL Differential Comment Prothrombin Time 10.8 SEC Prothromb Time International Ratio 1.1 RATIO Activated Partial Thromboplast Time 24.4 SEC Urine Color YELLOW Urine Turbidity CLEAR Urine pH 5.5 Urine Specific [place] 1.017 Urine Protein 100 mg/dL Urine Glucose (UA) TRACE mg/dL Urine Ketones 10 mg/dL Urine Occult Blood SMALL Urine Nitrite NEG Urine Bilirubin NEG Urine Urobilinogen LESS THAN 2.0 MG/DL Urine Leukocyte Esterase NEG Urine RBC 1 /hpf Urine WBC 2 /hpf Urine Amorphous Sediment MOD Urine Bacteria OCC /hpf Urine Mucus FEW /lpf Microscopic Urinalysis Comment CATH-CULTURE IND Blood Urea Nitrogen 42 MG/DL Creatinine 1.26 MG/DL Random Glucose 163 MG/DL Total Protein 7.8 GM/DL Albumin 3.7 GM/DL Calcium Level 8.8 MG/DL Alkaline Phosphatase 78 U/L Aspartate Amino Transf (AST/SGOT) 36 U/L Alanine Aminotransferase (ALT/SGPT) 32 U/L Total Bilirubin 1.4 MG/DL Sodium Level 141 MEQ/L Potassium Level 3.9 MEQ/L Chloride Level 104 MEQ/L Carbon Dioxide Level 27.3 MEQ/L Anion Gap 10 MEQ/L Estimat Glomerular Filtration Rate 42 ML/MIN [facility] Medical Record Reviewed: Yes Supervised Visit with MINNIE: Yes Interpretation(s) Last Impressions Hip and Pelvis X-Ray 10/02/172119 Signed Impressions: Service Date/Time: Monday, October 02, 2017 21:46 - CONCLUSION: 1. Intertrochanteric fracture proximal left femur with varus angulation. Per Rollins MD Chest X-Ray 10/02/172119 Signed Impressions: Service Date/Time: Monday, October 02, 2017 21:39 - CONCLUSION: 1. No active disease. Mildly tortuous aorta. Per Rollins MD Femur X-Ray 10/02/17 0000 Signed Impressions: Service Date/Time: Monday, October 02, 2017 21:46 - CONCLUSION: 1. Left femoral neck fracture with varus angulation. Per Rollins MD Narrative Course I, Dr. Velazquez, have reviewed the advance practice practitioner's documentation and am in agreement, met with the patient face to face, made the diagnosis, and the medical decision making was done by me. The patient was initially evaluated by Jacy, the MINNIE. Please see their complete history and physical. *My assessment and Findings: The patient presents with tripping and falling prior to arrival. The patient was noted to have left hip pain with shortening and rotation. The patient denies having any other pain. She denies having any loss of consciousness. She denies hitting her head or having a headache. During the course of the patient's emergency department visit, the patient's history, examination, and differential diagnosis were reviewed with the patient. The patient was placed on a school bus monitor with oximetry and frequent blood pressure monitoring. The patient had IV access obtained and blood work sent for analysis. The patient had an EKG done on arrival that shows a sinus tachycardia rate of 104, right bundle branch block, nonspecific ST segment depression in V3, T waves are inverted in V1. The patient's laboratory studies were reviewed and remarkable for a white count of 21.4, hemoglobin 11.8, platelets 213 with 92 neutrophils. CMP is remarkable for BUN of 42, creatinine 1.26, glucose 163, total bilirubin 1.4, PT 10.8, PTT 24.4, urinalysis shows 100 protein, 10 ketones, small occult blood, occasional bacteria. A chest x-ray that shows no active disease, mildly tortuous aorta. Hip x-ray reveals an intertrochanteric fracture proximal left femur with varus angulation. Radiology studies were reviewed and remarkable for a left hip x-ray that reveals an intertrochanteric fracture on the left. The patient's results were discussed with the patient, including the plan of care. I explained that further testing and/ or monitoring is indicated based on the patient's history, examination, and/ or laboratory findings. Therefore, I recommended admission for additional evaluation. The patient expressed understanding and was agreeable with this plan. The patient was admitted to the hospital in stable condition and [facility] Diagnosis Primary Impression: Intertrochanteric fracture of left femur Qualified Codes: S72.142A - Displaced intertrochanteric fracture of left femur , initial encounter for closed fracture Admitting Information Admitting Physician Requests: Admit Mary Velazquez MD Oct 02, 2017 22:22
--- NOTE | 2017-10-02 22:29 | RADRPT ---
EXAM DATE/TIME: 10/02/2017 21:39 [facility] COMPARISON: No previous studies available for comparison. INDICATIONS : Fall 2 days ago. MEDICAL HISTORY : None. SURGICAL HISTORY : None. ENCOUNTER: Initial ACUITY: 2 days PAIN SCORE: 1/10 LOCATION: Bilateral chest FINDINGS: A single view of the chest demonstrates the lungs to be symmetrically aerated without evidence of mas s, infiltrate or effusion. The cardiomediastinal contours are unremarkable. Osseous structures are intact. CONCLUSION: 1. No active disease. Mildly tortuous aorta. Per Rollins MD on October 02, 2017 at 22:25 Board Certified Radiologist. This report was verified electronically.
--- NOTE | 2017-10-02 22:34 | RADRPT ---
EXAM DATE/TIME: 10/02/2017 21:46 [facility] COMPARISON: No previous studies available for comparison. INDICATIONS : Fall 2 days ago. Left hip pain. MEDICAL HISTORY : None. SURGICAL HISTORY : None. ENCOUNTER: Initial ACUITY: 2 days PAIN SCORE: 9/10 LOCATION: Left hip FINDINGS: Two view examination of the left femur demonstrates a intratrochanteric fracture proximal left femur with varus angulation. Bones are mildly osteopenic. No other fracture identified. CONCLUSION: 1. Left femoral neck fracture with varus angulation. Per Rollins MD on October 02, 2017 at 22:31 Board Certified Radiologist. This report was verified electronically.
[2017-10-02 22:39] LABS: AUTOMATED NEUTROPHIL # 19.7 TH/MM3 (1.8-7.7); BASOPHIL % 0.1 % (0.0-2.0); HEMATOCRIT 35.3 % (35.0-46.0); HEMOGLOBIN 11.8 GM/DL (11.6-15.3); LYMPHOCYTE # 0.8 TH/MM3 (1.0-4.8); MEAN CELL VOLUME 89.1 FL (80.0-100.0); MEAN CORPUSCULAR HEMOGLOBIN 29.7 PG (27.0-34.0); MEAN CORPUSCULAR HGB CONC 33.4 % (32.0-36.0); MEAN PLATELET VOLUME 9.5 FL (7.0-11.0); MONO % 3.9 % (0.0-8.0); MONOCYTE # 0.8 TH/MM3 (0-0.9); PLATELET COUNT 213 TH/MM3 (150-450); RED BLOOD COUNT 3.96 MIL/MM3 (4.00-5.30); RED CELL DISTRIBUTION WIDTH 13.4 % (11.6-17.2); WHITE BLOOD COUNT 21.4 TH/MM3 (4.0-11.0)
--- NOTE | 2017-10-02 22:43 | RADRPT ---
EXAM DATE/TIME: 10/02/2017 21:46 [facility] COMPARISON: No previous studies available for comparison. INDICATIONS : Fall 2 days ago. Left hip pain. MEDICAL HISTORY : None. SURGICAL HISTORY : None. ENCOUNTER: Initial ACUITY: 2 days PAIN SCORE: 9/10 LOCATION: Left hip FINDINGS: There is an intertrochanteric fracture proximal left femur with varus angulation. No dislocation. CONCLUSION: 1. Intertrochanteric fracture proximal left femur with varus angulation. Per Rollins MD on October 02, 2017 at 22:41 Board Certified Radiologist. This report was verified electronically.
[2017-10-02 22:55] LABS: AMORPHOUS SEDIMENT, URINE MOD; BACTERIA, URINE OCC /hpf; BILIRUBIN, URINE NEG (NEG); BLOOD, URINE SMALL (NEG); GLUCOSE,URINE TRACE mg/dL (NEG); KETONE, URINE 10 mg/dL (NEG); MUCUS URINE FEW /lpf (OCC); NITRITE,URINE NEG (NEG); PH, URINE 5.5 (5.0-8.5); URINE COLOR YELLOW (YELLW/STRAW); URINE LEUKOCYTE ESTERASE NEG (NEG)
[2017-10-02 23:03] LABS: ALBUMIN 3.7 GM/DL (3.4-5.0); ALT (GPT) 32 U/L (10-53); AST (GOT) 36 U/L (15-37); BICARBONATE 27.3 MEQ/L (21.0-32.0); BLOOD UREA NITROGEN 42 MG/DL (7-18); CALCIUM 8.8 MG/DL (8.5-10.1); CHLORIDE 104 MEQ/L (98-107); CREATININE 1.26 MG/DL (0.50-1.00); GLOMERULAR FILTRATION RATE 42 ML/MIN (>89); GLUCOSE,RANDOM 163 MG/DL (74-106); SODIUM (NA) 141 MEQ/L (136-145)
[2017-10-02 23:06] LABS: ALKALINE PHOSPHATASE 78 U/L (45-117); TOTAL BILIRUBIN ADULT 1.4 MG/DL (0.2-1.0); TOTAL PROTEIN 7.8 GM/DL (6.4-8.2)
[2017-10-02 23:18] LABS: INTERNATIONAL NORMALIZED RATIO 1.1 RATIO; PROTHROMBIN TIME - PATIENT 10.8 SEC (9.8-11.6)
[2017-10-02] MEDS ORDERED: DEXTROSE 50% IN WATER 50 ML VIAL(D50) IV PUSH PRN (23:30)
[2017-10-02] MEDS ORDERED: SODIUM CHLORIDE 0.9% FLUSH 10 ML FLUSH IV FLUSH PRN (23:30)
[2017-10-02] MEDS ORDERED: NALOXONE HCL 0.4 MG/ML AMP IV PUSH PRN (23:30)
[2017-10-02] MEDS ORDERED: GLUCAGON 1 MG/ML VIAL OTHER PRN (23:30)
[2017-10-03] VITALS (8 sets, daily range): BP systolic 162–197; BP diastolic 92–98; PULSE 86–104; RESP 16–20; TEMP 97.9–98.4; O2SAT 95–96
--- NOTE | 2017-10-03 01:13 | HHI.HP ---
[facility] Service [facility] Primary Care Physician Reta Washington M.D. Admission Diagnosis left hip fracture Diagnoses: Chief Complaint: Left hip pain Travel History International Travel<30 Days: No Contact w/Intl Traveler <30 Da: No Traveled to Known Affected Are: No History of Present Illness 67-year-old female with a history of diabetes, hypertension and hyperlipidemia was brought in via eval after a trip and fall at her assisted living. Patient states she tripped over a cord and landed on her left hip. Currently she denies any pain. But states prior to morphine she had intermittent, throbbing pain to the left hip with associated nausea. She denies any LOC when she fell. She denies any chest pain, shortness of breath, fever or chills. Review of Systems Except as stated in HPI: all other systems reviewed are Neg Past Family Social History Past Medical History Diabetes Hypertension hyperlipidemia Past Surgical History Patient denies any surgeries Reported Medications Reported Meds & Active Scripts Active Ramipril 5 Mg Cap 5 Mg PO DAILY Reported Ativan (Lorazepam) 1 Mg Tab 1 Mg PO Q4H PRN Hydralazine (Hydralazine HCl) 100 Mg Tab 25 Mg PO DAILY Take with meals Clonidine (Clonidine HCl) 0.1 Mg Tab 0.1 Mg PO BID Novolog Flexpen Inj (Insulin Aspart) 300 Unit/3 Ml Pen 1 Units SQ QID PRN Amlodipine (Amlodipine Besylate) 5 Mg Tab 5 Mg PO DAILY Aspirin 81 Mg Chew 81 Mg CHEW DAILY Atorvastatin (Atorvastatin Calcium) 40 Mg Tab 40 Mg PO HS Lantus Inj (Insulin Glargine) 1,000 Unit/10 Ml Vial 5 Units SQ HS Allergies: Coded Allergies: Sulfa (Sulfonamide Antibiotics) (Verified Allergy, Unknown, ITCHY , ) Active Ordered Medications Current Medications Medications (Trade) Dose Ordered Sig/Clif Route Start Time Stop Time Status Last Admin (NS Flush) 2 ml UNSCH PRN IV FLUSH 10/02/17 23:30 (NS Flush) 2 ml BID IV FLUSH 10/03/17 09:00 (Narcan Inj) 0.4 mg UNSCH PRN IV PUSH 10/02/17 23:30 Dextrose/Sodium Chloride 1,000 ml @ 84 mls/hr [id number] IV 10/03/17 00:00 (D50w (Vial) Inj) 50 ml UNSCH PRN IV PUSH 10/02/17 23:30 (Glucagon Inj) 1 mg UNSCH PRN OTHER 10/02/17 23:30 Family History Dad: Diabetes Social History Patient denies any tobacco, alcohol or illicit drug use Physical Exam Vital Signs Vital Signs Date Time Temp Pulse Resp B/P (MAP) Pulse Ox O2 Delivery O2 Flow Rate FiO2 10/03/17 00:08 94 16 174/92 (119) Room Air 10/02/17 21:04 Nasal Cannula 10/02/17 20:50 101 16 173/92 (119) 95 Physical Exam GENERAL: This is a well-nourished, well-developed patient, in no apparent distress. SKIN: No rashes, ecchymoses or lesions. Cool and dry. HEAD: Atraumatic. Normocephalic. EYES: Pupils equal round and reactive. ENT: Nose without bleeding, purulent drainage or septal hematoma. NECK: Trachea midline. No JVD or lymphadenopathy. CARDIOVASCULAR: Regular rate and rhythm without murmurs, gallops, or rubs. RESPIRATORY: Clear to auscultation. Breath sounds equal bilaterally. GASTROINTESTINAL: Abdomen soft, non-tender, nondistended. No hepato-splenomegaly , or palpable masses. No guarding. MUSCULOSKELETAL: Extremities without clubbing, cyanosis, or edema. Left hip tenderness No calf tenderness. NEUROLOGICAL: Awake and alert. Normal speech Laboratory Laboratory Tests Test 10/02/17 22:00 White Blood Count 21.4 Red Blood Count 3.96 Hemoglobin 11.8 Hematocrit 35.3 Mean Corpuscular Volume 89.1 Mean Corpuscular Hemoglobin 29.7 Mean Corpuscular Hemoglobin Concent 33.4 Red Cell Distribution Width 13.4 Platelet Count 213 Mean Platelet Volume 9.5 Neutrophils (%) (Auto) 92.0 Lymphocytes (%) (Auto) 4.0 Monocytes (%) (Auto) 3.9 Eosinophils (%) (Auto) 0.0 Basophils (%) (Auto) 0.1 Neutrophils # (Auto) 19.7 Lymphocytes # (Auto) 0.8 Monocytes # (Auto) 0.8 Eosinophils # (Auto) 0.0 Basophils # (Auto) 0.0 CBC Comment DIFF FINAL Differential Comment Prothrombin Time 10.8 Prothromb Time International Ratio 1.1 Activated Partial Thromboplast Time 24.4 Urine Color YELLOW Urine Turbidity CLEAR Urine pH 5.5 Urine Specific [place] 1.017 Urine Protein 100 Urine Glucose (UA) TRACE Urine Ketones 10 Urine Occult Blood SMALL Urine Nitrite NEG Urine Bilirubin NEG Urine Urobilinogen LESS THAN 2.0 Urine Leukocyte Esterase NEG Urine RBC 1 Urine WBC 2 Urine Amorphous Sediment MOD Urine Bacteria OCC Urine Mucus FEW Microscopic Urinalysis Comment CATH-CULTURE IND Blood Urea Nitrogen 42 Creatinine 1.26 Random Glucose 163 Total Protein 7.8 Albumin 3.7 Calcium Level 8.8 Alkaline Phosphatase 78 Aspartate Amino Transf (AST/SGOT) 36 Alanine Aminotransferase (ALT/SGPT) 32 Total Bilirubin 1.4 Sodium Level 141 Potassium Level 3.9 Chloride Level 104 Carbon Dioxide Level 27.3 Anion Gap 10 Estimat Glomerular Filtration Rate 42 Date/Time Source Procedure Growth Status 10/02/17 22:00 Urine Catheterized Urine Urine Culture Pending Received Result Diagram: 10/02/17219910/02/172199 Imaging Last Impressions Hip and Pelvis X-Ray 10/02/172119 Signed Impressions: Service Date/Time: Monday, October 02, 2017 21:46 - CONCLUSION: 1. Intertrochanteric fracture proximal left femur with varus angulation. Per Rollins MD Chest X-Ray 10/02/172119 Signed Impressions: Service Date/Time: Monday, October 02, 2017 21:39 - CONCLUSION: 1. No active disease. Mildly tortuous aorta. Per Rollins MD Femur X-Ray 10/02/17 0000 Signed Impressions: Service Date/Time: Monday, October 02, 2017 21:46 - CONCLUSION: 1. Left femoral neck fracture with varus angulation. Per Rollins MD Caprini VTE Risk Assessment Caprini VTE Risk Assessment: No/Low Risk (score <= 1) Caprini Risk Assessment Model Point Value = 1 Point Value = 2 Point Value = 3 Point Value = 5 Age 41-60 Minor surgery BMI > 25 kg/m2 Swollen legs Varicose veins or History of unexplained or recurrent spontaneous Oral contraceptives or hormone replacement Sepsis (< 1 month) Serious lung disease, including pneumonia (< 1 month) Abnormal pulmonary function Acute myocardial infarction Congestive heart failure (< 1 month) History of inflammatory bowel disease Medical patient at bed rest Age 61-74 Arthroscopic surgery Major open surgery (> 45 min) Laparoscopic surgery (> 45 min) Malignancy Confined to bed (> 72 hours) Immobilizing plaster cast Central venous access Age >= 75 History of VTE Family history of VTE Factor V Leiden Prothrombin [id number] Lupus anticoagulant Anticardiolipin antibodies Elevated serum homocysteine Heparin-induced thrombocytopenia Other congenital or acquired thrombophilia Stroke (< 1 month) Elective arthroplasty Hip, pelvis, or leg fracture Acute spinal cord injury (< 1 month) Prophylaxis Regimen Total Risk Factor Score Risk Level Prophylaxis Regimen 0-1 Low Early ambulation 2 Moderate Order ONE of the following: *Sequential Compression Device (SCD) *Heparin 5000 units SQ BID 3-4 Higher Order ONE of the following medications: *Heparin 5000 units SQ TID *Enoxaparin/Lovenox 40 mg SQ daily (WT < 150 kg, CrCl > 30 mL/min) *Enoxaparin/Lovenox 30 mg SQ daily (WT < 150 kg, CrCl > 10-29 mL/min) *Enoxaparin/Lovenox 30 mg SQ BID (WT < 150 kg, CrCl > 30 mL/min) AND/OR *Sequential Compression Device (SCD) 5 or more Highest Order ONE of the following medications: *Heparin 5000 units SQ TID (Preferred with Epidurals) *Enoxaparin/Lovenox 40 mg SQ daily (WT < 150 kg, CrCl > 30 mL/min) *Enoxaparin/Lovenox 30 mg SQ daily (WT < 150 kg, CrCl > 10-29 mL/min) *Enoxaparin/Lovenox 30 mg SQ BID (WT < 150 kg, CrCl > 30 mL/min) AND *Sequential Compression Device (SCD) Assessment and Plan Problem List: (1) DM type 2 (diabetes mellitus, type 2) ICD Code: E11.9 - Type 2 diabetes mellitus without complications Status: Chronic (2) HTN (hypertension) ICD Code: I10 - Essential (primary) hypertension Status: Chronic (3) Hip fracture ICD Code: S72.009A - Fracture of unspecified part of neck of unspecified femur , initial encounter for closed fracture Status: Acute Assessment and Plan 67-year-old female with a history of diabetes, hypertension and hyperlipidemia was brought in via evac after a trip and fall at her assisted living. Left hip fracture Hip/pelvis x-ray shows intertrochanteric fracture proximal left femur -Consult orthopedics -Bedrest, nothing by mouth -Pain management with IV morphine Leukocytosis, unknown etiology, clinically reactive Abnormal UA, likely contamination -Urine culture pending, will await results before antibiotics -CBC in AM Diabetes, chronic -Accu-Cheks with sliding scale insulin Hypertension, chronic, currently uncontrolled -Resumed home medications -Clonidine when necessary DVT prophylaxis: SCDs Discussed Condition With Patient and RN Physician Certification 2 Midnight Certification Type: Admission for Inpatient Services Order for Inpatient Services The services are ordered in accordance with Medicare regulations or non- Medicare payer requirements, as applicable. In the case of services not specified as inpatient-only, they are appropriately provided as inpatient services in accordance with the 2-midnight benchmark. Estimated LOS (days): 2 days is the estimated time the patient will need to remain in the hospital, assuming treatment plan goals are met and no additional complications. Post-Hospital Plan: Not yet determined Problem Qualifiers (1) DM type 2 (diabetes mellitus, type 2): Qualified Codes: E11.9 - Type 2 diabetes mellitus without complications; Z79.4 - intermediate (current) use of insulin (2) HTN (hypertension): Qualified Codes: I10 - Essential (primary) hypertension (3) Hip fracture: Qualified Codes: S72.002A - Fracture of unspecified part of neck of left femur , initial encounter for closed fracture Francia Akhtar Oct 03, 2017 01:13
[2017-10-03] MEDS ORDERED: MORPHINE SULFATE 2 MG/ML INJ IV PUSH PRN (01:15)
[2017-10-03] MEDS ORDERED: cloNIDine HCL 0.1 MG TAB PO ONE ×2 (01:15→21:00)
[2017-10-03 06:59] LABS: AUTOMATED NEUTROPHIL # 16.2 TH/MM3 (1.8-7.7); BASOPHIL % 0.2 % (0.0-2.0); EOSINOPHIL % 0.1 % (0.0-4.0); HEMATOCRIT 34.8 % (35.0-46.0); HEMOGLOBIN 11.8 GM/DL (11.6-15.3); LYMPH % 5.6 % (9.0-44.0); MEAN CELL VOLUME 88.1 FL (80.0-100.0); MEAN PLATELET VOLUME 9.4 FL (7.0-11.0); MONO % 7.4 % (0.0-8.0); MONOCYTE # 1.4 TH/MM3 (0-0.9); NEUT % 86.7 % (16.0-70.0); PLATELET COUNT 208 TH/MM3 (150-450); RED BLOOD COUNT 3.94 MIL/MM3 (4.00-5.30); RED CELL DISTRIBUTION WIDTH 13.5 % (11.6-17.2); WHITE BLOOD COUNT 18.6 TH/MM3 (4.0-11.0)
[2017-10-03 07:17] LABS: BICARBONATE 28.7 MEQ/L (21.0-32.0); CALCIUM 8.8 MG/DL (8.5-10.1); CREATININE 1.14 MG/DL (0.50-1.00)
[2017-10-03] MEDS ORDERED: ceFAZolin INJ 1,000 MG VIAL ONE (08:21)
[2017-10-03] MEDS ORDERED: VANCOMYCIN HCL 1000 MG VIAL ONE (08:21)
[2017-10-03] MEDS ORDERED: GENTAMICIN SULFATE 80 MG/2 ML VIAL ONE (08:23)
--- NOTE | 2017-10-03 08:26 | PD.ORT.PN ---
Subjective Subjective Remarks Fall at assisted living facility. Pain to left hip and inability to ambulate. X- rays show fracture to left intertrochanteric femur Objective Vitals Vital Signs Date Time Temp Pulse Resp B/P (MAP) Pulse Ox O2 Delivery O2 Flow Rate FiO2 10/03/17 06:16 104 16 162/92 (115) 95 Room Air 10/03/17 00:08 94 16 174/92 (119) Room Air 10/02/17 21:04 Nasal Cannula 10/02/17 20:50 101 16 173/92 (119) 95 Result Diagram: 10/03/17 0630 10/03/17 0630 Other Results Laboratory Tests Test 10/02/17 22:00 Prothromb Time International Ratio 1.1 RATIO Prothrombin Time 10.8 SEC (9.8-11.6) Imaging Last 24 hours Impressions Hip and Pelvis X-Ray 10/02/172119 Signed Impressions: Service Date/Time: Monday, October 02, 2017 21:46 - CONCLUSION: 1. Intertrochanteric fracture proximal left femur with varus angulation. Per oRllins MD Chest X-Ray 10/02/172119 Signed Impressions: Service Date/Time: Monday, October 02, 2017 21:39 - CONCLUSION: 1. No active disease. Mildly tortuous aorta. Per Rollins MD Objective Remarks Bilateral upper extremities: No pain with range of motion and neurovascularly intact Right lower extremity: Full range of motion and neurovascularly intact Left lower extremity pain to palpation of hip. No pain to palpation of knee or ankle. Salas's traction in place. Distally intact sensation with active movement of all her toes Assessment & Plan Assessment and Plan Left intertrochanteric femur fracture Surgery this morning for fixation with intramedullary leona Sign consents Nothing by mouth Mikhail Armstrong Jr. Oct 03, 2017 08:26
[2017-10-03] MEDS ORDERED: XARE10TA PO (08:28)
[2017-10-03] MEDS ORDERED: WALKER/ADULT/FO1 MIS (08:28)
[2017-10-03] MEDS ORDERED: VITA500012 PO (08:28)
[2017-10-03] MEDS ORDERED: NORC5TAB PO (08:28)
[2017-10-03] MEDS ORDERED: CALCTAB19 PO (08:28)
[2017-10-03] MEDS ORDERED: POVIDONE IODINE 5% (ANTISEPSIS KIT) 4 APPLICATIONS EACH NARE PRN (08:30)
[2017-10-03] MEDS ORDERED: SODIUM CHLORID 0.9% 500 ML IV PRN (08:30)
[2017-10-03] MEDS ORDERED: LACTATED RINGER'S 1000 ML IV PRN (08:30)
[2017-10-03] MEDS ORDERED: INSULIN HUMAN REGULAR 1,000 UNITS/10 ML VIAL SQ PRN (08:30)
[2017-10-03] MEDS ORDERED: METOPROLOL TARTRATE 25 MG TAB PO PRN (08:30)
[2017-10-03] MEDS ORDERED: CHLORHEXIDINE GLUCONATE 2 % 1 PACK (2 CLOTHS) TOPICAL PRN (08:30)
[2017-10-03] MEDS ORDERED: ASPIRIN 81 MG CHEW TAB CHEW SCH (09:00)
--- NOTE | 2017-10-03 09:01 | MB ---
cc: JAMESON SILVA DATE OF CONSULTATION 10/03/2017 DATE OF ADMISSION 10/02/2017 REASON FOR CONSULTATION Left hip intertrochanteric fracture. CONSULTING PHYSICIAN Dr. Paiz DENISA Ladd is a 67-year-old female with a history of diabetes, hypertension and high cholesterol. She lives at an assisted living facility. She describes a mechanical fall. She states that she tripped over a cord. She landed on her left hip. She has been unable to stand or ambulate. Pain is worse with movement. She presented to the emergency room where x-rays revealed a displaced left intertrochanteric hip fracture. She is currently awake and alert in the emergency department. She denies any other injuries other than her left hip. PAST MEDICAL HISTORY Illnesses: 1. Diabetes 2. Hypertension 3. High cholesterol SURGERIES None MEDICATIONS 1. Ramipril 2. Ativan 3. Hydralazine 4. Clonidine 5. NovoLog 6. Aspirin 7. Atorvastatin 8. Lantus insulin ALLERGIES SULFA FAMILY HISTORY Positive for diabetes in her father. SOCIAL HISTORY The patient denies alcohol, tobacco or drug use. REVIEW OF SYSTEMS The patient denies headache, visual changes, neck pain, chest pain, shortness of breath, abdominal pain, nausea, vomiting, recent weight loss, fever or chills, numbness or tingling of her extremities or bowel or bladder incontinence. She complains of left hip pain. Pain is worse with movement. PHYSICAL EXAMINATION The patient is a pleasant 67-year female. She is awake and alert. She is alert and oriented x3. She appears well-developed and well-nourished. She is in no acute distress. VITAL SIGNS: Pulse 104, respirations 16, blood pressure 162/92, O2 sat 95% on room air. HEAD: The patient is normocephalic. EYES: Pupils are equal. NECK: Soft and nontender. Trachea is midline. ABDOMEN: Soft, nontender and nondistended. EXTREMITIES: Examination of bilateral upper extremities reveals no pain with shoulder, elbow or wrist motion. She has intact sensation in all fingers. She has good cap refill in all fingers. Radial pulses are palpable. Sensation is intact in all fingers. Examination of the right leg reveals no pain with hip, knee or ankle motion. Skin is intact. Dorsalis pedis pulses palpable. Sensation is intact in the right foot. Skin is intact. Examination of left leg reveals pain with any hip motion. She is diffusely tender to palpation around the left proximal femur and hip. She has pain with any hip motion. She has no tenderness in her knee, tibia or ankle. Calf and thigh compartments are soft. Skin is intact. Dorsalis pedis pulses palpable. Sensation is intact to the left foot. X-RAYS X-rays of the left hip were reviewed. X-rays reveal a left hip intertrochanteric fracture. IMPRESSION 1. Diabetes 2. Hypertension 3. High cholesterol 4. Left hip intertrochanteric fracture. 5. Possible osteoporosis. LABORATORY DATA The patient has a white blood cell count of 18.6, hemoglobin of 11.8 and hematocrit of 34.8. INR 1.1. BUN is 38 and creatinine is 1.14. PLAN Treatment options were discussed with the patient. At this point, I would recommend left hip reduction intramedullary nail fixation. The risks of surgery include bleeding, infection, injury to arteries, nerves and blood vessels, nonunion, malunion, painful hardware, as well as medical complications including blood clot, stroke, heart attack and . X-rays and lab results were reviewed. I will plan on surgery today. The patient may benefit from osteoporosis testing and possible calcium and vitamin E replacement treatment. All questions were answered. A mid-level provider in my office, nurse practitioner or PA, may see this patient on a follow-up basis and continue to implement the objective of this plan including: Starting or adjusting medications, injections of muscle, tendon, bursa or joints, cast application, orthotic or brace application, physical therapy, further radiographic studies including x-ray, MRI, CT, ultrasounds or bone scan, vascular studies, neurologic studies, or other specialist consultations, and proceeding with surgical management as appropriate. MD JEWEL Willis/ARIK /7:56 AM /8:49 AM
[2017-10-03] MEDS ORDERED: BUPIVACAINE/EPINEPHRINE 0.25% 50 ML VIAL ONE (10:13)
[2017-10-03] MEDS ORDERED: DO NOT ADM ANY ANTICOAGULANT DRUGS PRN (10:30)
--- NOTE | 2017-10-03 10:32 | PD.OP ---
cc: Villa Otero MD Operative Report Date of Surgery: Oct 03, 2017 Preoperative Diagnosis: Displaced left hip intertrochanteric fracture Postoperative Diagnosis: Procedure: Left hip reduction and intramedullary nail fixation Anesthesia: Gen. Surgeon: Villa Otero Principal Embedded Software Engineer(s): LAVERNE Alejandra PA-C The surgical procedure was assisted by my physician engineering inspection assistant. My P.A. presence was necessary throughout this case for the manipulation and positioning of the surgical extremity. My P.A. was assisting me throughout the duration of this procedure. The skill set of a physician engineering inspection assistant was medically necessary to complete this procedure. During the surgical case the electrostatic powder coating technician was working at the back table and the physician engineering inspection assistant was directly assisting me. Operation and Findings: Implants used: [9]mm Biomet Affyxis short troch nail Plan of activity: WBAT Patient was seen and evaluated preoperatively. The patient has significant hip pain from intertrochanteric hip fracture. The risk and benefits of surgery were discussed in depth with the patient to include bleeding infection nonunion malunion and need for hip replacement painful hardware as well as medical competitions including but not stroke heart attack and . Informed consent was obtained. Operative site was marked. Patient was brought to the operating room and placed on fracture table. IV sedation was administered by anesthesiologist. Timeout procedure was performed. Hip and leg were prepped with alcohol followed by DuraPrep and draped in the usual sterile fashion. IV antibiotics were given prior to incision. Procedure began with reduction of fracture. Traction was applied. The leg was manipulated to achieve reduction. Excellent reduction was achieved. Fluoroscopy was used to confirm reduction. A three inch incision was made proximal to the trochanter. Subcutaneous tissue was dissected bluntly. Guidepin was placed at the tip of the trochanter and advanced into the femoral canal. Fluoroscopy confirmed appropriate guidepin placement. A opening reamer was placed over the guidepin. The Biomet nail was attached to the insertion handle. Nail was now placed through the tip of the trochanter into the femoral canal. Fluoroscopy confirmed appropriate nail placement. A second incision was made over the lateral thigh. Cannulas were placed through the insertion handle down to the femur. Guidepin was now placed through the femoral nail into the center of the femoral head. Fluoroscopy confirmed appropriate guidepin placement. Screw length was measured. Cannulated drill was placed over the guidepin. Appropriate length lag screw was now placed. Traction was released and compression was applied. The set screw was now tightened in dynamic mode. Using the insertion handle as a guide a distal interlocking screw was drilled and placed. Final fluoroscopy revealed well aligned fracture with well-placed hardware. Incision was closed with 3-0 Vicryl and harpal. Sterile dressings were applied. Patient was awakened and transferred to recovery room. Villa Otero MD Oct 03, 2017 10:32
[2017-10-03] MEDS: DEXT 5%-NACL 0.45% 1000 ML INJ 1,000 ML IV SCH ×2 (10:56)
--- NOTE | 2017-10-03 11:27 | RADRPT ---
EXAM DATE/TIME: 10/03/2017 10:12 [facility] COMPARISON: No previous studies available for comparison. INDICATIONS : Post-op ORIF left hip fracture. MEDICAL HISTORY : None. SURGICAL HISTORY : None. ENCOUNTER: Subsequent ACUITY: 2 days PAIN SCORE: Non-responsive. LOCATION: Left hip. FINDINGS: 4 images are centered over the hip and labeled left. There is an short intramedullary leona with femora l neck screw. The femoral neck screw is contained within the cortical confines of the femoral head. N ormal anatomic alignment appreciated. CONCLUSION: Limited images as detailed above. Martin Rodarte Jr., MD on October 03, 2017 at 11:24 Board Certified Radiologist. This report was verified electronically.
[2017-10-03] MEDS ORDERED: GLYCOPYRROLATE 1 MG/5 ML SYRINGE IV PUSH ONE (12:00)
[2017-10-03] MEDS ORDERED: diphenhydrAMINE HCL 25 MG CAP PO PRN (12:00)
[2017-10-03] MEDS ORDERED: ROCURONIUM INJ 50 MG/5 ML SYRINGE IV PUSH ONE (12:00)
[2017-10-03] MEDS ORDERED: LIDOCAINE HCL 1% PF 5 ML SYRINGE OTHER ONE (12:00)
[2017-10-03] MEDS ORDERED: ACETAMINOPHEN/HYDROcodone 325 MG/7.5 MG TAB PO PRN (12:00)
[2017-10-03] MEDS ORDERED: ONDANSETRON HCL 4 MG/2 ML VIAL IV ONE (12:00)
[2017-10-03] MEDS ORDERED: PROPOFOL 200 MG/20 ML AMP IV ONE (12:00)
[2017-10-03] MEDS ORDERED: DEXAMETHASONE SOD PHOS 4 MG/ML VIAL IV ONE (12:00)
[2017-10-03] MEDS ORDERED: NEOSTIGMINE 5 MG/5 ML SYRINGE IV PUSH ONE (12:00)
[2017-10-03] MEDS ORDERED: ERGOCALCIFEROL (VIT D2) 50,000 UNIT CAP PO ONE (13:00)
[2017-10-03] MEDS: RAMIPRIL 5 MG CAP PO SCH (13:15)
[2017-10-03] MEDS: amLODIPine BESYLATE 5 MG TAB PO SCH (13:15)
[2017-10-03] MEDS: SODIUM CHLORIDE 0.9% FLUSH 10 ML FLUSH IV FLUSH SCH ×2 (13:42→21:00)
[2017-10-03] MEDS ORDERED: *LABETALOL HCL 100 MG/20 ML VIAL PERIprocedural Use ONLY ONE (13:42)
[2017-10-03] MEDS: hydrALAZINE HCL 25 MG TAB PO SCH (14:00)
[2017-10-03] MEDS ORDERED: *morphine SULFATE 4 MG/ML PERIprocedure ONLY ONE (14:26)
[2017-10-03] MEDS: ONDANSETRON HCL 4 MG/2 ML VIAL IV PUSH PRN (15:46)
[2017-10-03] MEDS: CALCIUM/VITAMIN D 250 MG/125 U TAB PO SCH ×3 (15:50→18:00)
--- NOTE | 2017-10-03 18:26 | EKG ---
Date Performed: 10/02/2017 Time Performed: 22:52:49 PTAGE: 67 years EKG: SINUS TACHYCARDIA RIGHT BUNDLE BRANCH BLOCK POSSIBLE ANTERIOR MYOCARDIAL INFARCTION INFERIO R MYOCARDIAL INFARCTION ABNORMAL ECG NO PREVIOUS TRACING DOCTOR: Michael Crouch Interpretating Date/Time 10/03/2017 18:25:01
[2017-10-03] MEDS: ATORVASTATIN 40 MG TAB PO SCH (21:05)
[2017-10-03] MEDS: INSULIN ASPART SUPPLEMENTAL SCALE SQ SCH (21:06)
[2017-10-04] VITALS (8 sets, daily range): BP systolic 127–195; BP diastolic 67–91; PULSE 89–103; RESP 15–18; TEMP 97.7–99.1; O2SAT 94–98
[2017-10-04] MEDS: DEXT 5%-NACL 0.45% 1000 ML INJ 1,000 ML IV SCH (02:33)
--- NOTE | 2017-10-04 06:47 | PD.ORT.PN ---
Subjective Subjective Remarks POD 1 s/p IMN left hip doing well. pain controlled. Objective Vitals Vital Signs Date Time Temp Pulse Resp B/P (MAP) Pulse Ox O2 Delivery O2 Flow Rate FiO2 10/03/17 21:23 96 21 10/03/17 21:14 97 10/03/17 20:10 98.4 95 16 197/97 (130) 96 10/03/17 18:52 86 10/03/17 18:30 103 10/03/17 17:00 97.9 91 20 190/98 (128) 96 10/03/17 15:00 98.2 86 19 170/82 (111) 99 Nasal Cannula 2 10/03/17 14:30 86 19 181/86 (117) 99 Nasal Cannula 2 10/03/17 14:00 83 18 180/84 (116) 99 Nasal Cannula 2 10/03/17 13:45 103 21 183/89 (120) 97 Nasal Cannula 2 10/03/17 13:42 103 21 189/104 (132) 97 Nasal Cannula 2 10/03/17 13:30 85 15 173/77 (109) 97 Nasal Cannula 2 10/03/17 13:00 80 21 175/77 (109) 96 Nasal Cannula 2 10/03/17 12:00 76 15 137/73 (94) 97 Nasal Cannula 2 10/03/17 11:45 67 15 149/65 (93) 97 Nasal Cannula 2 10/03/17 11:30 65 16 161/71 (101) 98 Nasal Cannula 2 10/03/17 11:15 66 17 177/70 (105) 98 Nasal Cannula 2 10/03/17 11:00 66 16 146/70 (95) 99 Nasal Cannula 2 10/03/17 10:45 85 20 147/70 (95) 100 Nasal Cannula 2 10/03/17 10:39 98.2 87 19 123/60 (81) 100 Nasal Cannula 3 I/O 10/03/17 10/03/17 10/03/17 10/04/17 10/04/17 10/04/17 07:00 15:00 23:00 07:00 15:00 23:00 Intake Total 1813 ml 1100 ml Output Total 1600 ml Balance 213 ml 1100 ml Intake Oral 75 ml IV Total 1738 ml 1100 ml Output Urine Total 550 ml Estimated Blood Loss 50 ml Other 1000 ml Result Diagram: 10/03/1730 10/03/1730 Imaging Last 24 hours Impressions Hip and Pelvis X-Ray 10/02/172119 Signed Impressions: Service Date/Time: Monday, October 02, 2017 21:46 - CONCLUSION: 1. Intertrochanteric fracture proximal left femur with varus angulation. Per Rollins MD Chest X-Ray 10/02/172119 Signed Impressions: Service Date/Time: Monday, October 02, 2017 21:39 - CONCLUSION: 1. No active disease. Mildly tortuous aorta. Per Rollins MD Objective Remarks LLE: dressings clean and dry. intact. NVI. Assessment & Plan Assessment and Plan 1) Left intertrochanteric femur fracture s/p IMN - POD 1 -WBAT -daily dressing changes POD 2 -CM for rehab placement -DVT prophylaxis -f/u with [facility] or PA in 2 weeks Javy Lyons/Light Rail Operator PA Oct 04, 2017 06:47
[2017-10-04] MEDS: INSULIN ASPART SUPPLEMENTAL SCALE SQ SCH ×3 (08:00→20:18)
[2017-10-04] MEDS: CHOLECALCIFEROL (VIT D3) 5000 UNIT CAP PO SCH (08:39)
[2017-10-04] MEDS: hydrALAZINE HCL 25 MG TAB PO SCH (08:39)
[2017-10-04] MEDS: ASPIRIN 81 MG CHEW TAB CHEW SCH (08:40)
[2017-10-04] MEDS: RAMIPRIL 5 MG CAP PO SCH (08:40)
[2017-10-04] MEDS: amLODIPine BESYLATE 5 MG TAB PO SCH (08:40)
[2017-10-04] MEDS: CALCIUM/VITAMIN D 250 MG/125 U TAB PO SCH ×3 (08:40→18:00)
[2017-10-04] MEDS: ENOXAPARIN SODIUM 30 MG/0.3 ML SYRINGE SQ SCH (08:41)
[2017-10-04 10:12] LABS: HEMATOCRIT 26.5 % (35.0-46.0)
[2017-10-04] MEDS: SODIUM CHLOR 0.45% 1000 ML INJ 1,000 ML IV SCH (16:45)
--- NOTE | 2017-10-04 16:46 | HHI.PR ---
Subjective Remarks The patient complained of nausea which she attributed to a diet soda. She said she had no pain in the lower extremities. She has been ambulating. She had to have a Nicolas catheter placed again. Discussed with nursing. Objective Vitals Vital Signs Date Time Temp Pulse Resp B/P (MAP) Pulse Ox O2 Delivery O2 Flow Rate FiO2 10/04/17 12:00 97.7 89 18 127/67 (87) 98 10/04/17 09:33 95 10/04/17 08:00 98.5 93 18 159/88 (111) 96 10/04/17 04:00 98.5 103 15 176/80 (112) 95 10/04/17 00:00 98.1 98 16 169/91 (117) 96 10/03/17 21:23 96 21 10/03/17 21:14 97 10/03/17 20:10 98.4 95 16 197/97 (130) 96 10/03/17 18:52 86 10/03/17 18:30 103 10/03/17 17:00 97.9 91 20 190/98 (128) 96 I/O 10/03/17 10/03/17 10/03/17 10/04/17 10/04/17 10/04/17 07:00 15:00 23:00 07:00 15:00 23:00 Intake Total 1813 ml 1500 ml 600 ml Output Total 1600 ml Balance 213 ml 1500 ml 600 ml Intake Oral 75 ml 400 ml 600 ml IV Total 1738 ml 1100 ml Output Urine Total 550 ml Estimated Blood Loss 50 ml Other 1000 ml Bladder Scan Volume Amount 763 ml # Bowel Movements 0 Result Diagram: 10/04/17 0834 10/03/17 0630 Imaging Last Impressions Hip X-Ray 10/03/17 0000 Signed Impressions: Service Date/Time: Tuesday, October 03, 2017 10:12 - CONCLUSION: Limited images as detailed above. Martin Rodarte Jr., MD Hip and Pelvis X-Ray 10/02/172119 Signed Impressions: Service Date/Time: Monday, October 02, 2017 21:46 - CONCLUSION: 1. Intertrochanteric fracture proximal left femur with varus angulation. Per Rollins MD Chest X-Ray 10/02/172119 Signed Impressions: Service Date/Time: Monday, October 02, 2017 21:39 - CONCLUSION: 1. No active disease. Mildly tortuous aorta. Per Rollins MD Femur X-Ray 10/02/17 0000 Signed Impressions: Service Date/Time: Monday, October 02, 2017 21:46 - CONCLUSION: 1. Left femoral neck fracture with varus angulation. Per Rollins MD Objective Remarks GENERAL: This is a well-nourished, well-developed patient, in no apparent distress. SKIN: No rashes, ecchymoses or lesions. Cool and dry. HEAD: Atraumatic. Normocephalic. EYES: Pupils equal round and reactive. ENT: Nose without bleeding, purulent drainage or septal hematoma. NECK: Trachea midline. No JVD or lymphadenopathy. CARDIOVASCULAR: Regular rate and rhythm without murmurs, gallops, or rubs. RESPIRATORY: Clear to auscultation. Breath sounds equal bilaterally. GASTROINTESTINAL: Abdomen soft, non-tender, nondistended. No hepato-splenomegaly , or palpable masses. No guarding. MUSCULOSKELETAL: Extremities without clubbing, cyanosis, or edema. Left leg s/p repair. NEUROLOGICAL: Awake and alert. Normal speech. Medications and IVs Current Medications Medications (Trade) Dose Ordered Sig/Clif Route Start Time Stop Time Status Last Admin (NS Flush) 2 ml UNSCH PRN IV FLUSH 10/02/17 23:30 (NS Flush) 2 ml BID IV FLUSH 10/03/17 09:00 10/03/17 13:42 (Narcan Inj) 0.4 mg UNSCH PRN IV PUSH 10/02/17 23:30 Dextrose/Sodium Chloride 1,000 ml @ 84 mls/hr [id number] IV 10/03/17 00:00 10/04/17 02:33 (D50w (Vial) Inj) 50 ml UNSCH PRN IV PUSH 10/02/17 23:30 (Glucagon Inj) 1 mg UNSCH PRN OTHER 10/02/17 23:30 (Norvasc) 5 mg DAILY PO 10/03/17 09:00 10/04/17 08:40 (Lipitor) 40 mg HS PO 10/03/17 21:00 10/03/17 21:05 (Apresoline) 25 mg DAILY PO 10/03/17 09:00 10/04/17 08:39 (Altace) 5 mg DAILY PO 10/03/17 09:00 10/04/17 08:40 (Zofran Inj) 4 mg Q6H PRN IV PUSH 10/03/17 01:15 10/03/17 15:46 (Morphine Inj) 2 mg Q3H PRN IV PUSH 10/03/17 01:15 Lactated Ringer's 1,000 ml @ 30 mls/hr Q24H PRN IV 10/03/17 08:30 10/06/17 08:29 10/03/17 07:47 Sodium Chloride 500 ml @ 30 mls/hr [id number] PRN IV 10/03/17 08:30 10/06/17 08:29 (Lopressor) 25 mg INTEGRATED CAMPAIGN MANAGER PRN PO 10/03/17 08:30 10/06/17 08:29 (Betadine 5% Antisepsis Kit) 1 applic INTEGRATED CAMPAIGN MANAGER PRN EACH NARE 10/03/17 08:30 10/06/17 08:29 (Chlorhexidine 2% Cloth) 3 pack INTEGRATED CAMPAIGN MANAGER PRN TOPICAL 10/03/17 08:30 10/06/17 08:29 (NovoLIN R INJ) See Protocol Table ... INTEGRATED CAMPAIGN MANAGER PRN SQ 10/03/17 08:30 10/06/17 08:29 10/04/17 08:41 (Lovenox Inj) 30 mg Q24H SQ 10/04/17 09:30 10/04/17 08:41 (Oscal-D 250-125) 250 mg TID PO 10/03/17 13:00 10/04/17 08:40 (Benadryl) 25 mg Q6H PRN PO 10/03/17 12:00 ([place] 7.5-325 Mg) 1 tab Q3H PRN PO 10/03/17 12:00 (Vitamin D3) 5,000 units DAILY PO 10/04/17 09:00 10/04/17 08:39 (Aspirin Chew) 81 mg DAILY CHEW 10/04/17 09:00 10/04/17 08:40 (NovoLOG SUPPLEMENTAL SCALE) 1 ACHS SLIDING SCALE SQ 10/03/17 21:00 10/03/17 21:06 (Levemir Inj) 5 units HS SQ 10/04/17 21:00 A/P Problem List: (1) DM type 2 (diabetes mellitus, type 2) ICD Code: E11.9 - Type 2 diabetes mellitus without complications Status: Chronic (2) HTN (hypertension) ICD Code: I10 - Essential (primary) hypertension Status: Chronic (3) Hip fracture ICD Code: S72.009A - Fracture of unspecified part of neck of unspecified femur , initial encounter for closed fracture Status: Acute Assessment and Plan 67-year-old female with a history of diabetes, hypertension and hyperlipidemia was brought in via evac after a trip and fall at her assisted living. Left hip fracture Hip/pelvis x-ray shows intertrochanteric fracture proximal left femur. Orthopedic consult appreciated. S/p IMN 10/03. - Pain management with a bowel regimen. - weightbearing, anticoagulation and wound care per ortho. - IS. - PT. Leukocytosis Likely reactive. Improving. Urine culture with no growth. -CBC in AM. Diabetes Glucose has been elevated. - Accu-Cheks with sliding scale insulin. - Levemir 5 units HS. Hypertension BP fluctuates. - Resumed home medications. - Clonidine when necessary. Anemia Likely secondary to surgery. - Follow CBC and transfuse as needed. Renal insufficiency May be prerenal. - IV fluids and monitor. DVT prophylaxis: Per ortho Problem Qualifiers (1) DM type 2 (diabetes mellitus, type 2): Qualified Codes: E11.9 - Type 2 diabetes mellitus without complications; Z79.4 - assistant terminal manager (current) use of insulin (2) HTN (hypertension): Qualified Codes: I10 - Essential (primary) hypertension (3) Hip fracture: Qualified Codes: S72.002A - Fracture of unspecified part of neck of left femur , initial encounter for closed fracture Mikhail Santiago DO Oct 04, 2017 16:46
[2017-10-04] MEDS: ONDANSETRON HCL 4 MG/2 ML VIAL IV PUSH PRN (17:50)
[2017-10-04] MEDS: ATORVASTATIN 40 MG TAB PO SCH (20:16)
[2017-10-04] MEDS: INSULIN DETEMIR 100 UNITS/ML VIAL SQ SCH (20:17)
[2017-10-04] MEDS: SODIUM CHLORIDE 0.9% FLUSH 10 ML FLUSH IV FLUSH SCH (20:22)
[2017-10-05] VITALS (12 sets, daily range): BP systolic 100–180; BP diastolic 58–98; PULSE 89–114; RESP 14–19; TEMP 95.5–99.2; O2SAT 95–98
[2017-10-05] MEDS ORDERED: cloNIDine HCL 0.1 MG TAB PO PRN (05:15)
[2017-10-05] MEDS: SODIUM CHLOR 0.45% 1000 ML INJ 1,000 ML IV SCH (06:05)
[2017-10-05 06:13] LABS: HEMATOCRIT 30.4 % (35.0-46.0); HEMOGLOBIN 10.3 GM/DL (11.6-15.3); MEAN CELL VOLUME 88.3 FL (80.0-100.0); MEAN PLATELET VOLUME 9.3 FL (7.0-11.0); PLATELET COUNT 233 TH/MM3 (150-450); RED BLOOD COUNT 3.44 MIL/MM3 (4.00-5.30); RED CELL DISTRIBUTION WIDTH 13.1 % (11.6-17.2); WHITE BLOOD COUNT 13.7 TH/MM3 (4.0-11.0)
--- NOTE | 2017-10-05 06:42 | PD.ORT.PN ---
Subjective Subjective Remarks POD 2 s/p IMN left hip doing well. pain controlled. out of bed with therapy Objective Vitals Vital Signs Date Time Temp Pulse Resp B/P (MAP) Pulse Ox O2 Delivery O2 Flow Rate FiO2 10/05/17 06:00 98.5 96 14 177/87 (117) 96 10/05/17 00:00 98.8 105 15 176/83 (114) 96 10/04/17 21:47 96 21 10/04/17 20:15 98 10/04/17 16:00 99.1 97 18 195/87 (123) 94 10/04/17 12:00 97.7 89 18 127/67 (87) 98 10/04/17 09:33 95 10/04/17 08:00 98.5 93 18 159/88 (111) 96 I/O 10/04/17 10/04/17 10/04/17 10/05/17 10/05/17 10/05/17 07:00 15:00 23:00 07:00 15:00 23:00 Intake Total 1500 ml 700 ml Balance 1500 ml 700 ml Intake Oral 400 ml 600 ml IV Total 1100 ml 100 ml Bladder Scan Volume Amount 763 ml # Bowel Movements 0 Result Diagram: 10/05/17 0530 10/03/17 0630 Imaging Last 24 hours Impressions Hip and Pelvis X-Ray 10/02/172119 Signed Impressions: Service Date/Time: Monday, October 02, 2017 21:46 - CONCLUSION: 1. Intertrochanteric fracture proximal left femur with varus angulation. Per Rollins MD Chest X-Ray 10/02/172119 Signed Impressions: Service Date/Time: Monday, October 02, 2017 21:39 - CONCLUSION: 1. No active disease. Mildly tortuous aorta. Per Rollins MD Objective Remarks LLE: dressings clean and dry. intact. NVI. Assessment & Plan Assessment and Plan 1) Left intertrochanteric femur fracture s/p IMN - POD 2 -WBAT -daily dressing changes POD 2 -CM for rehab placement -ortho clear for discharge to rehab -DVT prophylaxis -f/u with [facility] or [place] in 2 weeks Javy Lyons/Loading Rack Supervisor PA Oct 05, 2017 06:42
[2017-10-05 07:01] LABS: BICARBONATE 29.6 MEQ/L (21.0-32.0); CALCIUM 8.5 MG/DL (8.5-10.1); CREATININE 0.97 MG/DL (0.50-1.00); MAGNESIUM 1.9 MG/DL (1.5-2.5)
[2017-10-05] MEDS: INSULIN ASPART SUPPLEMENTAL SCALE SQ SCH ×4 (07:23→20:15)
[2017-10-05] MEDS: CHOLECALCIFEROL (VIT D3) 5000 UNIT CAP PO SCH (07:51)
[2017-10-05] MEDS: ASPIRIN 81 MG CHEW TAB CHEW SCH (07:51)
[2017-10-05] MEDS: SODIUM CHLORIDE 0.9% FLUSH 10 ML FLUSH IV FLUSH SCH ×2 (07:51→20:03)
[2017-10-05] MEDS: amLODIPine BESYLATE 5 MG TAB PO SCH (07:51)
[2017-10-05] MEDS: RAMIPRIL 5 MG CAP PO SCH (07:51)
[2017-10-05] MEDS: CALCIUM/VITAMIN D 250 MG/125 U TAB PO SCH ×3 (07:51→17:18)
[2017-10-05] MEDS: hydrALAZINE HCL 25 MG TAB PO SCH (07:51)
[2017-10-05] MEDS ORDERED: BISACODYL 10 MG SUPP RECTAL PRN (08:15)
[2017-10-05] MEDS ORDERED: POTASSIUM CHLORIDE 25 MEQ EFFERVESCENT TAB PO ONE (09:00)
[2017-10-05] MEDS: ENOXAPARIN SODIUM 30 MG/0.3 ML SYRINGE SQ SCH (09:28)
[2017-10-05] MEDS: cloNIDine HCL 0.1 MG TAB PO SCH ×2 (10:30→20:04)
--- NOTE | 2017-10-05 15:46 | HHI.DCPOC ---
Discharge Care Plan Diagnosis: (1) Intertrochanteric fracture of left femur (2) DM type 2 (diabetes mellitus, type 2) (3) HTN (hypertension) (4) Renal insufficiency Goals to Promote Your Health * To prevent worsening of your condition and complications * To maintain your health at the optimal level Directions to Meet Your Goals Take your medications as prescribed Follow your dietary instruction Follow activity as directed Keep your appointments as scheduled Take your immunizations and boosters as scheduled If your symptoms worsen call your PCP, if no PCP go to Urgent Care Center or Emergency Room Smoking is Dangerous to Your Health. Avoid second hand smoke Call the 24-hour hour crisis hotline for domestic abuse at Mikhail Santiago DO Oct 05, 2017 15:46
--- NOTE | 2017-10-05 16:15 | HHI.PR ---
Subjective Remarks The patient was resting comfortably in bed. She was looking forward to being discharged from the hospital. She had no acute complaints. Discussed with nursing and case management. Objective Vitals Vital Signs Date Time Temp Pulse Resp B/P (MAP) Pulse Ox O2 Delivery O2 Flow Rate FiO2 10/05/17 15:42 98.7 92 19 118/69 (85) 97 10/05/17 11:51 89 10/05/17 11:07 95.5 89 18 97 10/05/17 10:56 100/58 (72) 10/05/17 08:45 98 21 10/05/17 08:16 89 10/05/17 07:49 98.5 101 19 180/98 (125) 97 10/05/17 06:00 98.5 96 14 177/87 (117) 96 10/05/17 00:00 98.8 105 15 176/83 (114) 96 10/04/17 21:47 96 21 10/04/17 20:15 98 I/O 10/04/17 10/04/17 10/04/17 10/05/17 10/05/17 10/05/17 07:00 15:00 23:00 07:00 15:00 23:00 Intake Total 1500 ml 700 ml 700 ml Output Total 600 ml Balance 1500 ml 700 ml 100 ml Intake Oral 400 ml 600 ml 700 ml IV Total 1100 ml 100 ml Output Urine Total 600 ml Bladder Scan Volume Amount 763 ml # Bowel Movements 0 Result Diagram: 10/05/17 0530 10/05/17 0530 Imaging Last Impressions Hip X-Ray 10/03/17 0000 Signed Impressions: Service Date/Time: Tuesday, October 03, 2017 10:12 - CONCLUSION: Limited images as detailed above. Martin Rodarte Jr., MD Hip and Pelvis X-Ray 10/02/172119 Signed Impressions: Service Date/Time: Monday, October 02, 2017 21:46 - CONCLUSION: 1. Intertrochanteric fracture proximal left femur with varus angulation. Per Rollins MD Chest X-Ray 10/02/172119 Signed Impressions: Service Date/Time: Monday, October 02, 2017 21:39 - CONCLUSION: 1. No active disease. Mildly tortuous aorta. Per Rollins MD Femur X-Ray 10/02/17 0000 Signed Impressions: Service Date/Time: Monday, October 02, 2017 21:46 - CONCLUSION: 1. Left femoral neck fracture with varus angulation. Per Rollins MD Objective Remarks GENERAL: This is a well-nourished, well-developed patient, in no apparent distress. SKIN: No rashes, ecchymoses or lesions. Cool and dry. HEAD: Atraumatic. Normocephalic. EYES: Pupils equal round and reactive. ENT: Nose without bleeding, purulent drainage or septal hematoma. NECK: Trachea midline. No JVD or lymphadenopathy. CARDIOVASCULAR: Regular rate and rhythm without murmurs, gallops, or rubs. RESPIRATORY: Clear to auscultation. Breath sounds equal bilaterally. GASTROINTESTINAL: Abdomen soft, non-tender, nondistended. No hepato-splenomegaly , or palpable masses. No guarding. MUSCULOSKELETAL: Extremities without clubbing, cyanosis, or edema. Left leg s/p repair. NEUROLOGICAL: Awake and alert. Normal speech. Procedures Left intertrochanteric femur fracture s/p IMN Medications and IVs Current Medications Medications (Trade) Dose Ordered Sig/Clif Route Start Time Stop Time Status Last Admin (NS Flush) 2 ml UNSCH PRN IV FLUSH 10/02/17 23:30 (NS Flush) 2 ml BID IV FLUSH 10/03/17 09:00 10/05/17 07:51 (Narcan Inj) 0.4 mg UNSCH PRN IV PUSH 10/02/17 23:30 (D50w (Vial) Inj) 50 ml UNSCH PRN IV PUSH 10/02/17 23:30 (Glucagon Inj) 1 mg UNSCH PRN OTHER 10/02/17 23:30 (Norvasc) 5 mg DAILY PO 10/03/17 09:00 10/05/17 07:51 (Lipitor) 40 mg HS PO 10/03/17 21:00 10/04/17 20:16 (Apresoline) 25 mg DAILY PO 10/03/17 09:00 10/05/17 07:51 (Altace) 5 mg DAILY PO 10/03/17 09:00 10/05/17 07:51 (Zofran Inj) 4 mg Q6H PRN IV PUSH 10/03/17 01:15 10/04/17 17:50 (Morphine Inj) 2 mg Q3H PRN IV PUSH 10/03/17 01:15 (Lopressor) 25 mg SUPERVISOR ORDNANCE TRUCK INSTALLATION PRN PO 10/03/17 08:30 10/06/17 08:29 (Betadine 5% Antisepsis Kit) 1 applic SUPERVISOR ORDNANCE TRUCK INSTALLATION PRN EACH NARE 10/03/17 08:30 10/06/17 08:29 (Chlorhexidine 2% Cloth) 3 pack SUPERVISOR ORDNANCE TRUCK INSTALLATION PRN TOPICAL 10/03/17 08:30 10/06/17 08:29 (NovoLIN R INJ) See Protocol Table ... SUPERVISOR ORDNANCE TRUCK INSTALLATION PRN SQ 10/03/17 08:30 10/06/17 08:29 10/04/17 08:41 (Lovenox Inj) 30 mg Q24H SQ 10/04/17 09:30 10/05/17 09:28 (Oscal-D 250-125) 250 mg TID PO 10/03/17 13:00 10/05/17 12:19 (Benadryl) 25 mg Q6H PRN PO 10/03/17 12:00 ([place] 7.5-325 Mg) 1 tab Q3H PRN PO 10/03/17 12:00 (Vitamin D3) 5,000 units DAILY PO 10/04/17 09:00 10/05/17 07:51 (Aspirin Chew) 81 mg DAILY CHEW 10/04/17 09:00 10/05/17 07:51 (NovoLOG SUPPLEMENTAL SCALE) 1 ACHS SLIDING SCALE SQ 10/03/17 21:00 10/05/17 11:31 (Levemir Inj) 5 units HS SQ 10/04/17 21:00 10/04/17 20:17 ([place]) 0.1 mg Q6H PRN PO 10/05/17 05:15 10/05/17 06:30 (Dulcolax Supp) 10 mg DAILY PRN RECTAL 10/05/17 08:15 10/05/17 14:57 (Catapres) 0.1 mg BID PO 10/05/17 10:30 A/P Problem List: (1) DM type 2 (diabetes mellitus, type 2) ICD Code: E11.9 - Type 2 diabetes mellitus without complications Status: Chronic (2) HTN (hypertension) ICD Code: I10 - Essential (primary) hypertension Status: Chronic (3) Hip fracture ICD Code: S72.009A - Fracture of unspecified part of neck of unspecified femur , initial encounter for closed fracture Status: Acute Assessment and Plan 67-year-old female with a history of diabetes, hypertension and hyperlipidemia was brought in via evac after a trip and fall at her assisted living. Left hip fracture Hip/pelvis x-ray shows intertrochanteric fracture proximal left femur. Orthopedic consult appreciated. S/p IMN 10/03. - Pain management with a bowel regimen. - weightbearing, anticoagulation and wound care per ortho. - IS. - PT. Leukocytosis Likely reactive. Improving. Urine culture with no growth. -CBC in AM. Diabetes Glucose has been elevated. - Accu-Cheks with sliding scale insulin. - Levemir 5 units HS. Hypertension BP improved. - Resumed home medications. - Clonidine when necessary. Anemia Likely secondary to surgery. - Follow CBC and transfuse as needed. Renal insufficiency May be prerenal. - IV fluids and monitor. Improved. DVT prophylaxis: Per ortho Problem Qualifiers (1) DM type 2 (diabetes mellitus, type 2): Qualified Codes: E11.9 - Type 2 diabetes mellitus without complications; Z79.4 - termination clerk (current) use of insulin (2) HTN (hypertension): Qualified Codes: I10 - Essential (primary) hypertension (3) Hip fracture: Qualified Codes: S72.002A - Fracture of unspecified part of neck of left femur , initial encounter for closed fracture Mikhail Santiago DO Oct 05, 2017 16:15
[2017-10-05] MEDS: ONDANSETRON HCL 4 MG/2 ML VIAL IV PUSH PRN (19:56)
[2017-10-05] MEDS: ATORVASTATIN 40 MG TAB PO SCH (20:04)
[2017-10-05] MEDS: INSULIN DETEMIR 100 UNITS/ML VIAL SQ SCH (20:15)
[2017-10-06 04:10] VITALS: BP 143/82; PULSE 113; RESP 18; TEMP 99; O2SAT 96
[2017-10-06] MEDS: ONDANSETRON HCL 4 MG/2 ML VIAL IV PUSH PRN (04:43)
--- NOTE | 2017-10-06 06:51 | PD.ORT.PN ---
Subjective Subjective Remarks POD 3 s/p IMN left hip doing well. pain controlled. out of bed with therapy Objective Vitals Vital Signs Date Time Temp Pulse Resp B/P (MAP) Pulse Ox O2 Delivery O2 Flow Rate FiO2 10/06/17 04:10 99.0 113 18 143/82 (102) 96 10/05/17 23:10 99.2 114 17 140/83 (102) 96 10/05/17 20:25 98.6 103 17 167/87 (113) 95 10/05/17 20:10 104 10/05/17 15:42 98.7 92 19 118/69 (85) 97 10/05/17 11:51 89 10/05/17 11:07 95.5 89 18 97 10/05/17 10:56 100/58 (72) 10/05/17 08:45 98 21 10/05/17 08:16 89 10/05/17 07:49 98.5 101 19 180/98 (125) 97 I/O 10/05/17 10/05/17 10/05/17 10/06/17 10/06/17 10/06/17 07:00 15:00 23:00 07:00 15:00 23:00 Intake Total 700 ml 340 ml Output Total 600 ml 200 ml Balance 100 ml 140 ml Intake Oral 700 ml 240 ml IV Total 100 ml Output Urine Total 600 ml 200 ml # Bowel Movements 0 Result Diagram: 10/05/17 0530 10/05/17 0530 Imaging Last 24 hours Impressions Hip and Pelvis X-Ray 10/02/172119 Signed Impressions: Service Date/Time: Monday, October 02, 2017 21:46 - CONCLUSION: 1. Intertrochanteric fracture proximal left femur with varus angulation. Per Rollins MD Chest X-Ray 10/02/172119 Signed Impressions: Service Date/Time: Monday, October 02, 2017 21:39 - CONCLUSION: 1. No active disease. Mildly tortuous aorta. Per Rollins MD Objective Remarks LLE: dressings clean and dry. intact. NVI. Assessment & Plan Assessment and Plan 1) Left intertrochanteric femur fracture s/p IMN - POD 3 -WBAT -daily dressing changes POD 2 -CM for rehab placement -ortho clear for discharge to rehab -DVT prophylaxis -f/u with [facility] or PA in 2 weeks Javy Lyons PA/Karate Teacher PA Oct 06, 2017 06:51
[2017-10-06 08:00] VITALS: BP 147/86; PULSE 107; RESP 16; TEMP 98.3; O2SAT 96
[2017-10-06] MEDS: INSULIN ASPART SUPPLEMENTAL SCALE SQ SCH ×2 (08:00→12:00)
[2017-10-06] MEDS: CALCIUM/VITAMIN D 250 MG/125 U TAB PO SCH (08:48)
[2017-10-06] MEDS: hydrALAZINE HCL 25 MG TAB PO SCH (08:48)
[2017-10-06] MEDS: amLODIPine BESYLATE 5 MG TAB PO SCH (08:48)
[2017-10-06] MEDS: RAMIPRIL 5 MG CAP PO SCH (08:49)
[2017-10-06] MEDS: SODIUM CHLORIDE 0.9% FLUSH 10 ML FLUSH IV FLUSH SCH (08:49)
[2017-10-06] MEDS: ASPIRIN 81 MG CHEW TAB CHEW SCH (08:49)
[2017-10-06] MEDS: CHOLECALCIFEROL (VIT D3) 5000 UNIT CAP PO SCH (08:49)
[2017-10-06] MEDS: ENOXAPARIN SODIUM 30 MG/0.3 ML SYRINGE SQ SCH (08:49)
[2017-10-06] MEDS: cloNIDine HCL 0.1 MG TAB PO SCH (08:49)
[2017-10-06 11:24] VITALS: BP 121/76; PULSE 110; RESP 18; TEMP 98.8; O2SAT 97
--- NOTE | 2017-10-06 11:33 | HHI.DS ---
Discharge Summary Admission Date Oct 02, 2017 at 23:25 Discharge Date: Oct 06, 2017 Admitting Diagnosis left hip fracture (1) DM type 2 (diabetes mellitus, type 2) ICD Code: E11.9 - Type 2 diabetes mellitus without complications Status: Chronic (2) HTN (hypertension) ICD Code: I10 - Essential (primary) hypertension Status: Chronic (3) Hip fracture ICD Code: S72.009A - Fracture of unspecified part of neck of unspecified femur , initial encounter for closed fracture Diagnosis: Principal Status: Acute Procedures Left intertrochanteric femur fracture s/p IMN Brief History - From Admission 67-year-old female with a history of diabetes, hypertension and hyperlipidemia was brought in via eval after a trip and fall at her assisted living. Patient states she tripped over a cord and landed on her left hip. Currently she denies any pain. But states prior to morphine she had intermittent, throbbing pain to the left hip with associated nausea. She denies any LOC when she fell. She denies any chest pain, shortness of breath, fever or chills. CBC/BMP: 10/05/17 0530 10/05/17 0530 Significant Findings Laboratory Tests Test 10/04/17 08:34 10/05/17 05:30 Hemoglobin 9.0 GM/DL (11.6-15.3) 10.3 GM/DL (11.6-15.3) Hematocrit 26.5 % (35.0-46.0) 30.4 % (35.0-46.0) White Blood Count 13.7 TH/MM3 (4.0-11.0) Red Blood Count 3.44 MIL/MM3 (4.00-5.30) Random Glucose 136 MG/DL (74-106) Potassium Level 3.4 MEQ/L (3.5-5.1) Estimat Glomerular Filtration Rate 57 ML/MIN (>89) Imaging Last Impressions Hip X-Ray 10/03/17 0000 Signed Impressions: Service Date/Time: Tuesday, October 03, 2017 10:12 - CONCLUSION: Limited images as detailed above. Martin Rodarte Jr., MD Hip and Pelvis X-Ray 10/02/172119 Signed Impressions: Service Date/Time: Monday, October 02, 2017 21:46 - CONCLUSION: 1. Intertrochanteric fracture proximal left femur with varus angulation. Per Rollins MD Chest X-Ray 10/02/172119 Signed Impressions: Service Date/Time: Monday, October 02, 2017 21:39 - CONCLUSION: 1. No active disease. Mildly tortuous aorta. Per Rollins MD Femur X-Ray 10/02/17 0000 Signed Impressions: Service Date/Time: Monday, October 02, 2017 21:46 - CONCLUSION: 1. Left femoral neck fracture with varus angulation. Per Rollins MD PE at Discharge GENERAL: This is a well-nourished, well-developed patient, in no apparent distress. SKIN: No rashes, ecchymoses or lesions. Cool and dry. HEAD: Atraumatic. Normocephalic. EYES: Pupils equal round and reactive. ENT: Nose without bleeding, purulent drainage or septal hematoma. NECK: Trachea midline. No JVD or lymphadenopathy. CARDIOVASCULAR: Regular rate and rhythm without murmurs, gallops, or rubs. RESPIRATORY: Clear to auscultation. Breath sounds equal bilaterally. GASTROINTESTINAL: Abdomen soft, non-tender, nondistended. No hepato-splenomegaly , or palpable masses. No guarding. MUSCULOSKELETAL: Extremities without clubbing, cyanosis, or edema. Left leg s/p repair. NEUROLOGICAL: Awake and alert. Normal speech. Pt update on day of discharge The patient worked with physical therapy and had a brief fainting spell. She denied any symptoms. She did not lose consciousness. Her vital signs were stable. She had no acute complaints. Discussed with nursing. Hospital Course Left hip fracture Hip/pelvis x-ray showed intertrochanteric fracture of the proximal left femur. Orthopedic surgery was consulted. S/p fracture repair with an IMN on 10/03. The pt received pain management with a bowel regimen. She worked with physical therapy. She was instructed on using incentive spirometry. She will follow up with orthopedic surgery as an outpt. Leukocytosis Improving. Urine culture with no growth. She will repeat a CBC in 2-3 days. Diabetes She was placed on Accu-Cheks with sliding scale insulin as well as Levemir 5 units HS. She will resume her home regimen upon discharge. Hypertension We resumed her home medications. She received clonidine when necessary. Renal insufficiency Improved with IVFs. She will repeat a BMP in 2-3 days. Pt Condition on Discharge: Stable Discharge Disposition: Discharge to SNF Discharge Time: <= 30 minutes Discharge Instructions DIET: Follow Instructions for: Diabetic Diet Activities you can perform: See Additionl Instruction Follow up Referrals: Orthopedics - 2 Weeks @ [facility] with Villa Frederick MD PCP Follow-up - 1 Week New Orders: BASIC METABOLIC PROF - 2-3 Days CBC WITH DIFF - 2-3 Days New Medications: Calcium Carbonate-Vitamin D (Calcium 600+D 200) 600-200 Mg-Unit Tab 1 TAB PO BID for Nutritional Supplement, #90 TAB 0 Refills Ergocalciferol (Ergocalciferol) 50,000 Unit Cap 30259 UNITS PO Q7D for Nutritional Supplement, #8 CAP Hydrocodone-Acetaminophen ([place]) 5 Mg-325 Mg Tab 1 TAB PO Q4H PRN for PAIN, #40 TAB 0 Refills Rivaroxaban (Xarelto) 10 Mg Tab 10 MG PO DAILY for Blood Clot Prevention, #14 TAB 0 Refills Walker/Adult/Folding (Walker/Adult/Folding) 1 Mis Mis EA .XX DIRECTED, #1 0 Refills Continued Medications: Amlodipine (Amlodipine) 5 Mg Tab 5 MG PO DAILY for Blood Pressure Management, #30 TAB 0 Refills Aspirin (Aspirin) 81 Mg Chew 81 MG CHEW DAILY, TAB 0 Refills Atorvastatin (Atorvastatin) 40 Mg Tab 40 MG PO HS for Cholesterol Management, #30 TAB 0 Refills Clonidine (Clonidine) 0.1 Mg Tab 0.1 MG PO BID for Blood Pressure Management, #60 TAB 0 Refills Hydralazine (Hydralazine) 100 Mg Tab 25 MG PO DAILY for Blood Pressure Management, TAB 0 Refills Take with meals Insulin Aspart Inj (Novolog Flexpen Inj) 300 Unit/3 Ml Pen 1 UNITS SQ QID PRN for SLIDING SCALE , #1 PEN 0 Refills Insulin Glargine Inj (Lantus Inj) 1,000 Unit/10 Ml Vial 5 UNITS SQ HS for Blood Sugar Management, VIAL 0 Refills Ramipril (Ramipril) 5 Mg Cap 5 MG PO DAILY, #30 CAP Discontinued Medications: Lorazepam (Ativan) 1 Mg Tab 1 MG PO Q4H PRN for for severe anxiety or dyspnea, TAB 0 Refills Mikhail Santiago DO Oct 06, 2017 11:33
== END 2017-10-06 12:09 | DRG 482 ==
LOC: NEPC 20:35 → NEDA 23:25 → NEDH 10-03 05:48 → N06A 10-03 15:25
PROVIDERS: ADMIT Hospitalist; ATTEND Hospitalist
PROC: 0QS706Z Reposition Left Upper Femur with Intramedullary Internal Fixation Device, Open Approach (ICD-10-PCS; principal; 2017-10-03 09:03)
DX: S72.142A Displaced intertrochanteric fracture of left femur, initial encounter for closed fracture (principal); E11.65 Type 2 diabetes mellitus with hyperglycemia; I10 Essential (primary) hypertension; D64.9 Anemia, unspecified; F32.9 Major depressive disorder, single episode, unspecified; I45.10 Unspecified right bundle-branch block; N28.9 Disorder of kidney and ureter, unspecified; W01.0XXA Fall on same level from slipping, tripping and stumbling without subsequent striking against object, initial encounter; E78.00 Pure hypercholesterolemia, unspecified; R00.0 Tachycardia, unspecified; F43.20 Adjustment disorder, unspecified; R55 Syncope and collapse; F41.9 Anxiety disorder, unspecified; Z79.4 Long term (current) use of insulin; Y92.099 Unspecified place in other non-institutional residence as the place of occurrence of the external cause; Z86.73 Personal history of transient ischemic attack (TIA), and cerebral infarction without residual deficits
CPT/HCPCS: 51702; 71045; 73502; 73552; 76000; 80048; 80053; 81001; 82306; 82948; 83735; 85014; 85018; 85025; 85027; 85610; 85730; 87086; 93005; 94150; 96372; C1713; J0690; J1100; J1580; J1650; J1815; J2270; J2405; J2710; J3010; J3370; J7120